=== PATIENT | male | born 1975 | race African-American/Black ===

== ENCOUNTER 2021-03-14 13:38 | Inpatient (IN) | payer OTHER ==
[2021-03-14] MEDS ORDERED: MAG HYDROX/AL HYDROX/SIMETH 30 ML UNIT-DOSE CUP PO PRN (14:40)
[2021-03-14] MEDS ORDERED: MAGNESIUM HYDROX 2400MG/30ML ORAL SUSPENSION 30 ML CUP PO PRN (14:40)
[2021-03-14] MEDS ORDERED: MENTHOL/PHENOL 1 EACH UD MM PRN (14:40)
[2021-03-14] MEDS ORDERED: BISMUTH SUBSALICYLATE 524 MG/30 ML PO PRN (14:40)
[2021-03-14] MEDS ORDERED: ONDANSETRON *ODT* 4 MG TABLET SL PRN (14:40)
[2021-03-14] MEDS ORDERED: MAGNESIUM CITRATE 300 ML BOTTLE PO PRN (14:40)
[2021-03-14] MEDS ORDERED: ACETAMINOPHEN 325 MG TABLET (FP) PO PRN ×2 (14:40)
[2021-03-14] MEDS ORDERED: chlordiazePOXIDE HCL 25 MG CAPSULE PO PRN (14:40)
[2021-03-14] MEDS ORDERED: NICOTINE 10 MG CARTRIDGE (INHALER) IH PRN (14:40)
[2021-03-14 15:03] VITALS: BMI 27.8
[2021-03-14] MEDS ORDERED: DOCUSATE SODIUM 100 MG CAPSULE (FP) PO PRN (18:06)
[2021-03-14] MEDS: chlordiazePOXIDE HCL 25 MG CAPSULE PO SCH ×2 (18:10→22:24)
[2021-03-14] MEDS: hydrOXYzine PAMOATE 25 MG CAPSULE (FP) PO SCH ×2 (18:10→22:36)
[2021-03-14] MEDS: PANTOPRAZOLE 40 MG TABLET PO SCH (20:42)
[2021-03-14] MEDS ORDERED: MELATONIN 5 MG TABLETS PO SCH (22:00)
[2021-03-14] MEDS: THIAMINE HCL 100 MG TABLET (FP) PO SCH (22:24)
[2021-03-14] MEDS: DIVALPROEX NA *ER* EXTEND REL 500 MG TABLET.SA (FP) PO SCH (22:26)
[2021-03-15] MEDS: chlordiazePOXIDE HCL 25 MG CAPSULE PO SCH ×4 (05:58→22:13)
[2021-03-15] MEDS: hydrOXYzine PAMOATE 25 MG CAPSULE (FP) PO SCH ×5 (06:02→22:11)
[2021-03-15] MEDS: PANTOPRAZOLE 40 MG TABLET PO SCH (10:26)
[2021-03-15] MEDS: amLODIPine BESYLATE 5 MG TABLET (FP) PO SCH (10:26)
[2021-03-15] MEDS: DIVALPROEX NA *ER* EXTEND REL 500 MG TABLET.SA (FP) PO SCH ×2 (10:27→22:00)
[2021-03-15] MEDS: PRENATAL VITAMINS W/ FOLIC ACID TABLET (FP) PO SCH (10:27)
[2021-03-15] MEDS: SERTRALINE HCL 50 MG TABLET (FP) PO SCH (11:15)
[2021-03-15 11:32] LABS: CALCIUM 8.8 mg/dL (8.5-10.1)
[2021-03-15 11:33] LABS: ALBUMIN 3.1 g/dl (3.4-5.0); BLOOD UREA NITROGEN 9.6 mg/dL (7-18)
[2021-03-15 11:36] LABS: CREATININE 0.8 mg/dL (0.55-1.3)
[2021-03-15 11:38] LABS: BILIRUBIN,TOTAL 0.2 mg/dL (0.2-1); TOT PROT 6.4 g/dl (6.4-8.2)
[2021-03-15 12:39] LABS: HEMATOCRIT 44.4 % (35.4-49); HEMOGLOBIN 14.6 GM/dL (11.7-16.9); MCH 27.9 pg (25.7-33.7); MCHC 32.8 g/dl (32.0-35.9); MEAN CELL VOLUME 85.1 fl (80-96); MEAN PLT VOLUME 9.1 fl (7.5-11.1); PLATELET COUNT 259 10^3/uL (134-434); RBC 5.22 M/mm3 (4.00-5.60); RDW 15.4 % (11.9-15.9); WHITE BLOOD COUNT 6.9 K/mm3 (4.0-10.0)
[2021-03-15] MEDS: GABAPENTIN 300 MG CAPSULE PO SCH ×2 (14:17→22:13)
[2021-03-15] MEDS: NICOTINE POLACRILEX 2 MG GUM BUC PRN (14:50)
[2021-03-15] MEDS: OLANZapine 10 MG TABLET PO SCH (22:11)
[2021-03-15] MEDS: traZODone HCL 100 MG TABLET (FP) PO SCH (22:12)
[2021-03-15] MEDS: THIAMINE HCL 100 MG TABLET (FP) PO SCH (22:12)
[2021-03-16] MEDS ORDERED: P-EPHED 60MG/TRIPROLIDI 2.5MG TABLET PO PRN (06:12)
[2021-03-16] MEDS: GABAPENTIN 300 MG CAPSULE PO SCH ×3 (06:41→22:13)
[2021-03-16] MEDS: hydrOXYzine PAMOATE 25 MG CAPSULE (FP) PO SCH ×5 (06:41→22:14)
[2021-03-16] MEDS: chlordiazePOXIDE HCL 25 MG CAPSULE PO SCH ×5 (06:43→22:13)
[2021-03-16] MEDS: IBUPROFEN 400 MG TABLET (FP) PO PRN (06:55)
[2021-03-16] MEDS: SERTRALINE HCL 50 MG TABLET (FP) PO SCH (10:14)
[2021-03-16] MEDS: PANTOPRAZOLE 40 MG TABLET PO SCH (10:14)
[2021-03-16] MEDS: amLODIPine BESYLATE 5 MG TABLET (FP) PO SCH (10:14)
[2021-03-16] MEDS: METHOCARBAMOL 500 MG TABLET PO PRN (10:20)
[2021-03-16] MEDS: PRENATAL VITAMINS W/ FOLIC ACID TABLET (FP) PO SCH (10:52)
[2021-03-16] MEDS: NICOTINE POLACRILEX 2 MG GUM BUC PRN ×3 (11:17→19:36)
[2021-03-16] MEDS: DIVALPROEX NA *ER* EXTEND REL 500 MG TABLET.SA (FP) PO SCH ×2 (11:55→22:14)
[2021-03-16] MEDS ORDERED: FLU VACC QS2021-22(6MOS UP)/PF 60 MCG/0.5 ML SYRINGE IM ONE ×2 (14:16→15:00)
[2021-03-16] MEDS: traZODone HCL 100 MG TABLET (FP) PO SCH (22:13)
[2021-03-16] MEDS: OLANZapine 10 MG TABLET PO SCH (22:13)
[2021-03-16] MEDS: THIAMINE HCL 100 MG TABLET (FP) PO SCH (22:13)
[2021-03-17] MEDS ORDERED: chlordiazePOXIDE HCL 10 MG CAPSULE PO PRN
[2021-03-17] MEDS: hydrOXYzine PAMOATE 25 MG CAPSULE (FP) PO SCH ×2 (06:41→10:20)
[2021-03-17] MEDS: GABAPENTIN 300 MG CAPSULE PO SCH (06:41)
[2021-03-17] MEDS: chlordiazePOXIDE HCL 10 MG CAPSULE PO SCH ×2 (06:42→10:22)
[2021-03-17 09:35] VITALS: BP 127/72; PULSE 97; TEMP 97
[2021-03-17] MEDS: NICOTINE POLACRILEX 2 MG GUM BUC PRN (09:38)
[2021-03-17] MEDS: PRENATAL VITAMINS W/ FOLIC ACID TABLET (FP) PO SCH (10:20)
[2021-03-17] MEDS: METHOCARBAMOL 500 MG TABLET PO PRN (10:20)
[2021-03-17] MEDS: amLODIPine BESYLATE 5 MG TABLET (FP) PO SCH (10:20)
[2021-03-17] MEDS: PANTOPRAZOLE 40 MG TABLET PO SCH (10:20)
[2021-03-17] MEDS: DIVALPROEX NA *ER* EXTEND REL 500 MG TABLET.SA (FP) PO SCH (10:21)
[2021-03-17] MEDS: SERTRALINE HCL 50 MG TABLET (FP) PO SCH (10:37)
[2021-03-17] MEDS: IBUPROFEN 400 MG TABLET (FP) PO PRN (10:38)
[2021-03-18] MEDS ORDERED: chlordiazePOXIDE HCL 10 MG CAPSULE PO SCH (05:00)
[2021-03-19] MEDS ORDERED: chlordiazePOXIDE HCL 10 MG CAPSULE PO ONE (05:00)
== END 2021-03-17 12:04 | disposition left against medical advice (07) | DRG 770 ==
LOC: YASAS 13:38 → Y6N 15:28
PROVIDERS: ADMIT Allergy & Immunology; ATTEND Allergy & Immunology
PROC: HZ2ZZZZ Detoxification Services for Substance Abuse Treatment (ICD-10-PCS; principal; 2021-03-14)
DX: F11.23 Opioid dependence with withdrawal (principal); F10.230 Alcohol dependence with withdrawal, uncomplicated; F14.20 Cocaine dependence, uncomplicated; F13.20 Sedative, hypnotic or anxiolytic dependence, uncomplicated; F12.20 Cannabis dependence, uncomplicated; F17.210 Nicotine dependence, cigarettes, uncomplicated; F25.0 Schizoaffective disorder, bipolar type; F25.9 Schizoaffective disorder, unspecified; F19.24 Other psychoactive substance dependence with psychoactive substance-induced mood disorder; F19.282 Other psychoactive substance dependence with psychoactive substance-induced sleep disorder; F43.10 Post-traumatic stress disorder, unspecified; E78.5 Hyperlipidemia, unspecified; E11.9 Type 2 diabetes mellitus without complications; Z62.810 Personal history of physical and sexual abuse in childhood; Z86.69 Personal history of other diseases of the nervous system and sense organs; Z86.11 Personal history of tuberculosis; Z79.84 Long term (current) use of oral hypoglycemic drugs; Z56.0 Unemployment, unspecified
CPT/HCPCS: 36415; 71045-TC-FY; 73130-TC-LT-FY; 80053; 82962; 85027; 86780; 90686; C9803; G0008; U0003; U0005

== ENCOUNTER 2022-02-27 14:26 | Inpatient (IN) | payer OTHER ==
[2022-02-27 15:30] VITALS: BMI 22.8
[2022-02-27] MEDS ORDERED: DICYCLOMINE HCL 10 MG CAPSULE PO PRN (17:21)
[2022-02-27] MEDS ORDERED: MAG HYDROX/AL HYDROX/SIMETH 30 ML UNIT-DOSE CUP PO PRN (17:21)
[2022-02-27] MEDS ORDERED: ONDANSETRON *ODT* 4 MG TABLET SL PRN (17:21)
[2022-02-27] MEDS ORDERED: NALOXONE HCL (KLOXXADO) 8 MG SPRAY NS PRN (17:21)
[2022-02-27] MEDS ORDERED: LOPERAMIDE HCL 2 MG CAPSULE PO PRN (17:21)
[2022-02-27] MEDS ORDERED: POLYETHYLENE GLYCOL (HEALTHYLAX) 3350 17 GM PACKET PO PRN (17:21)
[2022-02-27] MEDS ORDERED: NICOTINE 10 MG CARTRIDGE (INHALER) IH PRN (17:21)
[2022-02-27] MEDS ORDERED: BENZOCAINE/MENTHOL (CHLORASEPTIC ) LOZENGE MM PRN (17:21)
[2022-02-27] MEDS ORDERED: ACETAMINOPHEN 325 MG TABLET (FP) PO PRN (17:21)
[2022-02-27] MEDS ORDERED: BISMUTH SUBSALICYLATE 524 MG/30 ML PO PRN (17:21)
[2022-02-27] MEDS ORDERED: MAGNESIUM HYDROX 2400MG/30ML ORAL SUSPENSION 30 ML CUP PO PRN (17:21)
[2022-02-27] MEDS: PRENATAL VITAMINS W/ FOLIC ACID TABLET (FP) PO SCH (18:40)
[2022-02-27] MEDS ORDERED: MELATONIN 5 MG TABLETS PO SCH (22:00)
[2022-02-27] MEDS: THIAMINE HCL 100 MG TABLET (FP) PO SCH (23:11)
[2022-02-27] MEDS: DIVALPROEX NA *ER* EXTEND REL 500 MG TABLET.SA (FP) PO SCH (23:11)
[2022-02-28 09:27] LABS: HEMATOCRIT 43.7 % (35.4-49); HEMOGLOBIN 13.9 GM/dL (11.7-16.9); MCH 27.4 pg (25.7-33.7); MCHC 31.8 g/dl (32.0-35.9); MEAN PLT VOLUME 8.9 fl (7.5-11.1); PLATELET COUNT 263 10^3/uL (134-434); RBC 5.08 M/mm3 (4.00-5.60); RDW 15.7 % (11.9-15.9)
[2022-02-28] MEDS ORDERED: chlordiazePOXIDE HCL 25 MG CAPSULE PO PRN (09:36)
[2022-02-28 09:37] LABS: CALCIUM 8.7 mg/dL (8.5-10.1)
[2022-02-28 09:38] LABS: BLOOD UREA NITROGEN 11.3 mg/dL (7-18)
[2022-02-28 09:40] LABS: CREATININE 0.7 mg/dL (0.55-1.3)
[2022-02-28 09:42] LABS: BILIRUBIN,TOTAL 0.5 mg/dL (0.2-1); TOT PROT 5.8 g/dl (6.4-8.2)
[2022-02-28] MEDS: DIVALPROEX NA *ER* EXTEND REL 500 MG TABLET.SA (FP) PO SCH ×2 (10:22→22:44)
[2022-02-28] MEDS: chlordiazePOXIDE HCL 25 MG CAPSULE PO SCH ×3 (10:22→22:14)
[2022-02-28] MEDS: PRENATAL VITAMINS W/ FOLIC ACID TABLET (FP) PO SCH (10:22)
[2022-02-28] MEDS: amLODIPine BESYLATE 5 MG TABLET (FP) PO SCH (10:22)
[2022-02-28] MEDS: METHOCARBAMOL 500 MG TABLET PO PRN ×2 (15:42→22:15)
[2022-02-28] MEDS: ACETAMINOPHEN 325 MG TABLET (FP) PO PRN (15:43)
[2022-02-28] MEDS ORDERED: OLANZapine 10 MG TABLET PO SCH (22:00)
[2022-02-28] MEDS: OLANZapine 5 MG TABLET PO SCH (22:14)
[2022-02-28] MEDS: THIAMINE HCL 100 MG TABLET (FP) PO SCH (22:14)
[2022-03-01] MEDS: chlordiazePOXIDE HCL 25 MG CAPSULE PO SCH ×4 (06:20→22:09)
[2022-03-01] MEDS: ACETAMINOPHEN 325 MG TABLET (FP) PO PRN (06:27)
[2022-03-01] MEDS: amLODIPine BESYLATE 5 MG TABLET (FP) PO SCH (10:26)
[2022-03-01] MEDS: PRENATAL VITAMINS W/ FOLIC ACID TABLET (FP) PO SCH (10:26)
[2022-03-01] MEDS: SERTRALINE HCL 50 MG TABLET (FP) PO SCH (10:28)
[2022-03-01] MEDS: DIVALPROEX NA *ER* EXTEND REL 500 MG TABLET.SA (FP) PO SCH ×2 (10:50→22:10)
[2022-03-01] MEDS: OLANZapine 5 MG TABLET PO SCH (22:09)
[2022-03-01] MEDS: THIAMINE HCL 100 MG TABLET (FP) PO SCH (22:10)
[2022-03-01] MEDS: METHOCARBAMOL 500 MG TABLET PO PRN (22:10)
[2022-03-01] MEDS: IBUPROFEN 600 MG TABLET (FP) PO PRN (22:46)
[2022-03-02] MEDS: chlordiazePOXIDE HCL 25 MG CAPSULE PO SCH ×4 (07:22→22:01)
[2022-03-02] MEDS: amLODIPine BESYLATE 5 MG TABLET (FP) PO SCH (11:01)
[2022-03-02] MEDS: DIVALPROEX NA *ER* EXTEND REL 500 MG TABLET.SA (FP) PO SCH ×2 (11:01→21:20)
[2022-03-02] MEDS: SERTRALINE HCL 50 MG TABLET (FP) PO SCH (11:01)
[2022-03-02] MEDS: PRENATAL VITAMINS W/ FOLIC ACID TABLET (FP) PO SCH (11:01)
[2022-03-02] MEDS: METHOCARBAMOL 500 MG TABLET PO PRN ×3 (11:03→22:46)
[2022-03-02] MEDS: IBUPROFEN 600 MG TABLET (FP) PO PRN (11:04)
[2022-03-02] MEDS: IBUPROFEN 400 MG TABLET (FP) PO PRN (16:55)
[2022-03-02] MEDS: THIAMINE HCL 100 MG TABLET (FP) PO SCH (21:20)
[2022-03-02] MEDS: OLANZapine 10 MG TABLET PO SCH (21:20)
[2022-03-02] MEDS: hydrOXYzine PAMOATE 25 MG CAPSULE (FP) PO PRN (22:46)
[2022-03-03] MEDS ORDERED: chlordiazePOXIDE HCL 10 MG CAPSULE PO PRN
[2022-03-03] MEDS: chlordiazePOXIDE HCL 10 MG CAPSULE PO SCH ×4 (05:20→22:04)
[2022-03-03] MEDS: SERTRALINE HCL 50 MG TABLET (FP) PO SCH (10:13)
[2022-03-03] MEDS: PRENATAL VITAMINS W/ FOLIC ACID TABLET (FP) PO SCH (10:13)
[2022-03-03] MEDS: DIVALPROEX NA *ER* EXTEND REL 500 MG TABLET.SA (FP) PO SCH ×2 (10:13→22:02)
[2022-03-03] MEDS: amLODIPine BESYLATE 5 MG TABLET (FP) PO SCH (10:13)
[2022-03-03] MEDS: NICOTINE POLACRILEX 2 MG GUM BUC PRN ×3 (10:14→20:43)
[2022-03-03] MEDS: IBUPROFEN 400 MG TABLET (FP) PO PRN (17:49)
[2022-03-03] MEDS: OLANZapine 10 MG TABLET PO SCH (22:03)
[2022-03-03] MEDS: METHOCARBAMOL 500 MG TABLET PO PRN (22:03)
[2022-03-03] MEDS: THIAMINE HCL 100 MG TABLET (FP) PO SCH (22:03)
[2022-03-03] MEDS: IBUPROFEN 600 MG TABLET (FP) PO PRN (23:14)
[2022-03-03] MEDS: hydrOXYzine PAMOATE 25 MG CAPSULE (FP) PO PRN (23:14)
[2022-03-04] MEDS: chlordiazePOXIDE HCL 10 MG CAPSULE PO SCH ×2 (06:47→17:40)
[2022-03-04] MEDS: NICOTINE POLACRILEX 2 MG GUM BUC PRN ×3 (08:38→17:30)
[2022-03-04] MEDS: amLODIPine BESYLATE 5 MG TABLET (FP) PO SCH (10:51)
[2022-03-04] MEDS: SERTRALINE HCL 50 MG TABLET (FP) PO SCH (10:51)
[2022-03-04] MEDS: DIVALPROEX NA *ER* EXTEND REL 500 MG TABLET.SA (FP) PO SCH ×2 (10:51→22:04)
[2022-03-04] MEDS: PRENATAL VITAMINS W/ FOLIC ACID TABLET (FP) PO SCH (10:51)
[2022-03-04] MEDS: IBUPROFEN 600 MG TABLET (FP) PO PRN (10:54)
[2022-03-04] MEDS: METHOCARBAMOL 500 MG TABLET PO PRN (17:42)
[2022-03-04] MEDS: THIAMINE HCL 100 MG TABLET (FP) PO SCH (22:03)
[2022-03-04] MEDS: OLANZapine 10 MG TABLET PO SCH (22:04)
[2022-03-04] MEDS: IBUPROFEN 400 MG TABLET (FP) PO PRN (22:05)
[2022-03-05] MEDS ORDERED: chlordiazePOXIDE HCL 10 MG CAPSULE PO ONE (05:00)
[2022-03-05] MEDS: DIVALPROEX NA *ER* EXTEND REL 500 MG TABLET.SA (FP) PO SCH (10:12)
[2022-03-05] MEDS: PRENATAL VITAMINS W/ FOLIC ACID TABLET (FP) PO SCH (10:12)
[2022-03-05] MEDS: amLODIPine BESYLATE 5 MG TABLET (FP) PO SCH (10:12)
[2022-03-05] MEDS: SERTRALINE HCL 50 MG TABLET (FP) PO SCH (10:12)
[2022-03-05] MEDS: METHOCARBAMOL 500 MG TABLET PO PRN ×2 (10:14→16:55)
[2022-03-05] MEDS: NICOTINE POLACRILEX 2 MG GUM BUC PRN ×3 (10:15→16:57)
[2022-03-05 12:59] VITALS: RESP 18
[2022-03-05] MEDS: IBUPROFEN 400 MG TABLET (FP) PO PRN (14:13)
[2022-03-05] MEDS: ACETAMINOPHEN 325 MG TABLET (FP) PO PRN (16:56)
[2022-03-05 17:10] VITALS: BP 138/79; PULSE 96; TEMP 98.6
[2022-03-05] MEDS: hydrOXYzine PAMOATE 25 MG CAPSULE (FP) PO PRN (17:55)
== END 2022-03-05 18:33 | disposition other institution (70) | DRG 774 ==
LOC: YASAS 14:26 → UNDOADMIN 18:09 → Y3N 18:09
PROVIDERS: ADMIT Allergy & Immunology; ATTEND Surgery
PROC: HZ2ZZZZ Detoxification Services for Substance Abuse Treatment (ICD-10-PCS; principal; 2022-02-28)
DX: F10.230 Alcohol dependence with withdrawal, uncomplicated (principal); F14.20 Cocaine dependence, uncomplicated; F12.20 Cannabis dependence, uncomplicated; F17.210 Nicotine dependence, cigarettes, uncomplicated; F25.0 Schizoaffective disorder, bipolar type; F31.9 Bipolar disorder, unspecified; G40.909 Epilepsy, unspecified, not intractable, without status epilepticus; I10 Essential (primary) hypertension; E78.00 Pure hypercholesterolemia, unspecified; E11.9 Type 2 diabetes mellitus without complications; Z79.84 Long term (current) use of oral hypoglycemic drugs; Z56.0 Unemployment, unspecified; Z59.00 Homelessness unspecified
CPT/HCPCS: 36415; 80053; 80164; 82962; 85027; 86780; C9803-CS; U0003; U0005

== ENCOUNTER 2022-03-05 18:16 | Inpatient (IN) | payer OTHER ==
[2022-03-05] MEDS ORDERED: OLANZapine 10 MG TABLET PO SCH (22:00)
[2022-03-05] MEDS ORDERED: P-EPHED 60MG/TRIPROLIDI 2.5MG TABLET PO PRN (22:04)
[2022-03-05] MEDS ORDERED: BENZOCAINE/MENTHOL (CHLORASEPTIC ) LOZENGE MM PRN (22:04)
[2022-03-05] MEDS ORDERED: POLYETHYLENE GLYCOL (HEALTHYLAX) 3350 17 GM PACKET PO PRN (22:04)
[2022-03-05] MEDS ORDERED: MAG HYDROX/AL HYDROX/SIMETH 30 ML UNIT-DOSE CUP PO PRN (22:04)
[2022-03-05] MEDS ORDERED: ACETAMINOPHEN 325 MG TABLET (FP) PO PRN (22:04)
[2022-03-05] MEDS ORDERED: MAGNESIUM HYDROX 2400MG/30ML ORAL SUSPENSION 30 ML CUP PO PRN (22:04)
[2022-03-05] MEDS ORDERED: LOPERAMIDE HCL 2 MG CAPSULE PO PRN (22:04)
[2022-03-05] MEDS ORDERED: BACLOFEN 10 MG TABLET (FP) PO SCH (22:15)
[2022-03-05] MEDS ORDERED: DIVALPROEX NA *ER* EXTEND REL 500 MG TABLET.SA (FP) PO SCH (22:15)
[2022-03-05] MEDS: MELATONIN 5 MG TABLETS PO SCH (22:15)
[2022-03-06] MEDS: IBUPROFEN 400 MG TABLET (FP) PO PRN ×2 (02:44→14:09)
[2022-03-06] MEDS: PRENATAL VITAMINS W/ FOLIC ACID TABLET (FP) PO SCH (09:54)
[2022-03-06] MEDS: amLODIPine BESYLATE 5 MG TABLET (FP) PO SCH (09:54)
[2022-03-06] MEDS: NICOTINE 21 MG/24 HOURS TOPICAL PATCH TD SCH (09:55)
[2022-03-06] MEDS: NICOTINE POLACRILEX 2 MG GUM BUC PRN ×2 (10:06→12:49)
[2022-03-06] MEDS: BACLOFEN 10 MG TABLET (FP) PO PRN ×2 (15:44→21:03)
[2022-03-06] MEDS: THIAMINE HCL 100 MG TABLET (FP) PO SCH (21:03)
[2022-03-06] MEDS: hydrOXYzine PAMOATE 25 MG CAPSULE (FP) PO PRN (21:03)
[2022-03-06] MEDS: MELATONIN 5 MG TABLETS PO SCH (21:03)
[2022-03-07] MEDS: BACLOFEN 10 MG TABLET (FP) PO PRN ×2 (06:34→21:34)
[2022-03-07] MEDS: IBUPROFEN 400 MG TABLET (FP) PO PRN ×2 (09:31→21:41)
[2022-03-07] MEDS: PRENATAL VITAMINS W/ FOLIC ACID TABLET (FP) PO SCH (09:32)
[2022-03-07] MEDS: amLODIPine BESYLATE 5 MG TABLET (FP) PO SCH (09:32)
[2022-03-07] MEDS: NICOTINE 21 MG/24 HOURS TOPICAL PATCH TD SCH (09:32)
[2022-03-07] MEDS: NICOTINE POLACRILEX 2 MG GUM BUC PRN (09:33)
[2022-03-07] MEDS: THIAMINE HCL 100 MG TABLET (FP) PO SCH (21:34)
[2022-03-07] MEDS: MELATONIN 5 MG TABLETS PO SCH (21:34)
[2022-03-07] MEDS: hydrOXYzine PAMOATE 25 MG CAPSULE (FP) PO PRN (21:34)
[2022-03-07] MEDS ORDERED: METHOCARBAMOL 500 MG TABLET PO ONE (22:59)
[2022-03-08] MEDS: amLODIPine BESYLATE 5 MG TABLET (FP) PO SCH (09:29)
[2022-03-08] MEDS: NICOTINE 21 MG/24 HOURS TOPICAL PATCH TD SCH (09:29)
[2022-03-08] MEDS: PRENATAL VITAMINS W/ FOLIC ACID TABLET (FP) PO SCH (09:30)
[2022-03-08] MEDS: BACLOFEN 10 MG TABLET (FP) PO PRN ×2 (09:30→22:39)
[2022-03-08] MEDS: DIVALPROEX NA *ER* EXTEND REL 500 MG TABLET.SA (FP) PO SCH ×2 (11:56→21:27)
[2022-03-08] MEDS: NICOTINE 10 MG CARTRIDGE (INHALER) IH PRN (14:14)
[2022-03-08] MEDS: THIAMINE HCL 100 MG TABLET (FP) PO SCH (21:27)
[2022-03-08] MEDS: METHOCARBAMOL 500 MG TABLET PO PRN (21:27)
[2022-03-08] MEDS: MELATONIN 5 MG TABLETS PO SCH (21:27)
[2022-03-08] MEDS: hydrOXYzine PAMOATE 25 MG CAPSULE (FP) PO PRN (21:27)
[2022-03-08] MEDS: OLANZapine 10 MG TABLET PO SCH (21:28)
[2022-03-09] MEDS: BACLOFEN 10 MG TABLET (FP) PO PRN ×2 (06:34→16:44)
[2022-03-09] MEDS: NICOTINE 21 MG/24 HOURS TOPICAL PATCH TD SCH (09:50)
[2022-03-09] MEDS: DIVALPROEX NA *ER* EXTEND REL 500 MG TABLET.SA (FP) PO SCH ×2 (09:50→21:08)
[2022-03-09] MEDS: amLODIPine BESYLATE 5 MG TABLET (FP) PO SCH (09:51)
[2022-03-09] MEDS: PRENATAL VITAMINS W/ FOLIC ACID TABLET (FP) PO SCH (09:51)
[2022-03-09] MEDS: SERTRALINE HCL 50 MG TABLET (FP) PO SCH (09:52)
[2022-03-09] MEDS: NICOTINE 10 MG CARTRIDGE (INHALER) IH PRN (12:24)
[2022-03-09] MEDS: MELATONIN 5 MG TABLETS PO SCH (21:07)
[2022-03-09] MEDS: THIAMINE HCL 100 MG TABLET (FP) PO SCH (21:07)
[2022-03-09] MEDS: OLANZapine 10 MG TABLET PO SCH (21:07)
[2022-03-10] MEDS: BACLOFEN 10 MG TABLET (FP) PO PRN ×2 (06:51→21:03)
[2022-03-10] MEDS: SERTRALINE HCL 50 MG TABLET (FP) PO SCH (10:18)
[2022-03-10] MEDS: amLODIPine BESYLATE 5 MG TABLET (FP) PO SCH (10:19)
[2022-03-10] MEDS: NICOTINE 21 MG/24 HOURS TOPICAL PATCH TD SCH (10:19)
[2022-03-10] MEDS: PRENATAL VITAMINS W/ FOLIC ACID TABLET (FP) PO SCH (10:19)
[2022-03-10] MEDS: DIVALPROEX NA *ER* EXTEND REL 500 MG TABLET.SA (FP) PO SCH ×2 (10:20→21:04)
[2022-03-10] MEDS: guaiFENesin 200 MG/10 ML 10 ML UNIT-DOSE CUPS PO PRN (16:36)
[2022-03-10] MEDS: MELATONIN 5 MG TABLETS PO SCH (21:03)
[2022-03-10] MEDS: OLANZapine 10 MG TABLET PO SCH (21:03)
[2022-03-10] MEDS: THIAMINE HCL 100 MG TABLET (FP) PO SCH (21:03)
[2022-03-11] MEDS: amLODIPine BESYLATE 5 MG TABLET (FP) PO SCH (09:30)
[2022-03-11] MEDS: SERTRALINE HCL 50 MG TABLET (FP) PO SCH (09:30)
[2022-03-11] MEDS: DIVALPROEX NA *ER* EXTEND REL 500 MG TABLET.SA (FP) PO SCH ×2 (09:31→21:16)
[2022-03-11] MEDS: PRENATAL VITAMINS W/ FOLIC ACID TABLET (FP) PO SCH (09:31)
[2022-03-11] MEDS: NICOTINE 21 MG/24 HOURS TOPICAL PATCH TD SCH (09:31)
[2022-03-11] MEDS: BACLOFEN 10 MG TABLET (FP) PO PRN ×2 (09:32→21:15)
[2022-03-11] MEDS: guaiFENesin 200 MG/10 ML 10 ML UNIT-DOSE CUPS PO PRN (12:33)
[2022-03-11] MEDS: MELATONIN 5 MG TABLETS PO SCH (21:14)
[2022-03-11] MEDS: THIAMINE HCL 100 MG TABLET (FP) PO SCH (21:14)
[2022-03-11] MEDS: OLANZapine 10 MG TABLET PO SCH (21:14)
[2022-03-12] MEDS: IBUPROFEN 400 MG TABLET (FP) PO PRN ×2 (00:50→16:48)
[2022-03-12] MEDS: DIVALPROEX NA *ER* EXTEND REL 500 MG TABLET.SA (FP) PO SCH ×2 (10:44→21:47)
[2022-03-12] MEDS: PRENATAL VITAMINS W/ FOLIC ACID TABLET (FP) PO SCH (10:44)
[2022-03-12] MEDS: NICOTINE 21 MG/24 HOURS TOPICAL PATCH TD SCH (10:44)
[2022-03-12] MEDS: SERTRALINE HCL 50 MG TABLET (FP) PO SCH (10:44)
[2022-03-12] MEDS: amLODIPine BESYLATE 5 MG TABLET (FP) PO SCH (10:47)
[2022-03-12] MEDS: NICOTINE 10 MG CARTRIDGE (INHALER) IH PRN (15:09)
[2022-03-12] MEDS: OLANZapine 10 MG TABLET PO SCH (21:46)
[2022-03-12] MEDS: MELATONIN 5 MG TABLETS PO SCH (21:47)
[2022-03-12] MEDS: THIAMINE HCL 100 MG TABLET (FP) PO SCH (21:47)
[2022-03-12] MEDS: BACLOFEN 10 MG TABLET (FP) PO PRN (21:50)
[2022-03-13] MEDS: PRENATAL VITAMINS W/ FOLIC ACID TABLET (FP) PO SCH (09:27)
[2022-03-13] MEDS: amLODIPine BESYLATE 5 MG TABLET (FP) PO SCH (09:27)
[2022-03-13] MEDS: SERTRALINE HCL 50 MG TABLET (FP) PO SCH (09:27)
[2022-03-13] MEDS: DIVALPROEX NA *ER* EXTEND REL 500 MG TABLET.SA (FP) PO SCH ×2 (09:27→21:07)
[2022-03-13] MEDS: NICOTINE 21 MG/24 HOURS TOPICAL PATCH TD SCH (09:27)
[2022-03-13] MEDS: NICOTINE 10 MG CARTRIDGE (INHALER) IH PRN (21:03)
[2022-03-13] MEDS: MELATONIN 5 MG TABLETS PO SCH (21:05)
[2022-03-13] MEDS: THIAMINE HCL 100 MG TABLET (FP) PO SCH (21:05)
[2022-03-13] MEDS: BACLOFEN 10 MG TABLET (FP) PO PRN (21:05)
[2022-03-13] MEDS: OLANZapine 10 MG TABLET PO SCH (21:07)
[2022-03-14] MEDS: DIVALPROEX NA *ER* EXTEND REL 500 MG TABLET.SA (FP) PO SCH ×2 (09:55→21:27)
[2022-03-14] MEDS: NICOTINE 21 MG/24 HOURS TOPICAL PATCH TD SCH (09:55)
[2022-03-14] MEDS: SERTRALINE HCL 50 MG TABLET (FP) PO SCH (09:56)
[2022-03-14] MEDS: PRENATAL VITAMINS W/ FOLIC ACID TABLET (FP) PO SCH (09:56)
[2022-03-14] MEDS: amLODIPine BESYLATE 5 MG TABLET (FP) PO SCH (09:56)
[2022-03-14] MEDS: NICOTINE 10 MG CARTRIDGE (INHALER) IH PRN (12:26)
[2022-03-14] MEDS: MELATONIN 5 MG TABLETS PO SCH (21:26)
[2022-03-14] MEDS: THIAMINE HCL 100 MG TABLET (FP) PO SCH (21:26)
[2022-03-14] MEDS: BACLOFEN 10 MG TABLET (FP) PO PRN (21:27)
[2022-03-14] MEDS: OLANZapine 10 MG TABLET PO SCH (21:27)
[2022-03-15] MEDS: DIVALPROEX NA *ER* EXTEND REL 500 MG TABLET.SA (FP) PO SCH ×2 (09:46→21:05)
[2022-03-15] MEDS: NICOTINE 21 MG/24 HOURS TOPICAL PATCH TD SCH (09:47)
[2022-03-15] MEDS: PRENATAL VITAMINS W/ FOLIC ACID TABLET (FP) PO SCH (09:47)
[2022-03-15] MEDS: amLODIPine BESYLATE 5 MG TABLET (FP) PO SCH (09:47)
[2022-03-15] MEDS: SERTRALINE HCL 50 MG TABLET (FP) PO SCH (09:47)
[2022-03-15] MEDS: BACLOFEN 10 MG TABLET (FP) PO PRN ×2 (09:48→21:03)
[2022-03-15] MEDS: METHOCARBAMOL 500 MG TABLET PO PRN (15:36)
[2022-03-15] MEDS ORDERED: INSULIN (NOVOLOG) ASPART 100 UNITS/ML 10ML VIAL ONE (16:38)
[2022-03-15] MEDS: THIAMINE HCL 100 MG TABLET (FP) PO SCH (21:03)
[2022-03-15] MEDS: OLANZapine 10 MG TABLET PO SCH (21:03)
[2022-03-15] MEDS: MELATONIN 5 MG TABLETS PO SCH (21:03)
[2022-03-16] MEDS: amLODIPine BESYLATE 5 MG TABLET (FP) PO SCH (09:51)
[2022-03-16] MEDS: SERTRALINE HCL 50 MG TABLET (FP) PO SCH (09:52)
[2022-03-16] MEDS: PRENATAL VITAMINS W/ FOLIC ACID TABLET (FP) PO SCH (09:52)
[2022-03-16] MEDS: NICOTINE 21 MG/24 HOURS TOPICAL PATCH TD SCH (09:52)
[2022-03-16] MEDS: DIVALPROEX NA *ER* EXTEND REL 500 MG TABLET.SA (FP) PO SCH ×2 (09:52→21:27)
[2022-03-16] MEDS: NICOTINE 10 MG CARTRIDGE (INHALER) IH PRN (14:11)
[2022-03-16] MEDS ORDERED: INSULIN (NOVOLOG) ASPART 100 UNITS/ML 10ML VIAL ONE (16:42)
[2022-03-16] MEDS: THIAMINE HCL 100 MG TABLET (FP) PO SCH (21:26)
[2022-03-16] MEDS: MELATONIN 5 MG TABLETS PO SCH (21:27)
[2022-03-16] MEDS: BACLOFEN 10 MG TABLET (FP) PO PRN (21:27)
[2022-03-16] MEDS: OLANZapine 10 MG TABLET PO SCH (21:27)
[2022-03-17] MEDS: NICOTINE 21 MG/24 HOURS TOPICAL PATCH TD SCH (09:54)
[2022-03-17] MEDS: DIVALPROEX NA *ER* EXTEND REL 500 MG TABLET.SA (FP) PO SCH ×2 (09:55→21:20)
[2022-03-17] MEDS: PRENATAL VITAMINS W/ FOLIC ACID TABLET (FP) PO SCH (09:55)
[2022-03-17] MEDS: SERTRALINE HCL 50 MG TABLET (FP) PO SCH (09:55)
[2022-03-17] MEDS: BACLOFEN 10 MG TABLET (FP) PO PRN ×2 (09:56→21:20)
[2022-03-17] MEDS: amLODIPine BESYLATE 5 MG TABLET (FP) PO SCH (09:57)
[2022-03-17] MEDS: NICOTINE 10 MG CARTRIDGE (INHALER) IH PRN (21:20)
[2022-03-17] MEDS: THIAMINE HCL 100 MG TABLET (FP) PO SCH (21:20)
[2022-03-17] MEDS: OLANZapine 10 MG TABLET PO SCH (21:20)
[2022-03-17] MEDS: MELATONIN 5 MG TABLETS PO SCH (21:21)
[2022-03-18] MEDS: PRENATAL VITAMINS W/ FOLIC ACID TABLET (FP) PO SCH (10:13)
[2022-03-18] MEDS: DIVALPROEX NA *ER* EXTEND REL 500 MG TABLET.SA (FP) PO SCH ×2 (10:20→21:06)
[2022-03-18] MEDS: amLODIPine BESYLATE 5 MG TABLET (FP) PO SCH (10:20)
[2022-03-18] MEDS: NICOTINE 21 MG/24 HOURS TOPICAL PATCH TD SCH (10:20)
[2022-03-18] MEDS: METHOCARBAMOL 500 MG TABLET PO PRN ×2 (10:20→21:08)
[2022-03-18] MEDS: SERTRALINE HCL 50 MG TABLET (FP) PO SCH (10:20)
[2022-03-18] MEDS: NICOTINE 10 MG CARTRIDGE (INHALER) IH PRN (16:44)
[2022-03-18] MEDS: THIAMINE HCL 100 MG TABLET (FP) PO SCH (21:06)
[2022-03-18] MEDS: MELATONIN 5 MG TABLETS PO SCH (21:06)
[2022-03-18] MEDS: OLANZapine 10 MG TABLET PO SCH (21:06)
[2022-03-19] MEDS: DIVALPROEX NA *ER* EXTEND REL 500 MG TABLET.SA (FP) PO SCH ×2 (09:08→21:13)
[2022-03-19] MEDS: NICOTINE 21 MG/24 HOURS TOPICAL PATCH TD SCH (09:08)
[2022-03-19] MEDS: PRENATAL VITAMINS W/ FOLIC ACID TABLET (FP) PO SCH (09:09)
[2022-03-19] MEDS: SERTRALINE HCL 50 MG TABLET (FP) PO SCH (09:09)
[2022-03-19] MEDS: amLODIPine BESYLATE 5 MG TABLET (FP) PO SCH (09:09)
[2022-03-19] MEDS: BACLOFEN 10 MG TABLET (FP) PO PRN (09:10)
[2022-03-19] MEDS: NICOTINE 10 MG CARTRIDGE (INHALER) IH PRN ×2 (13:39→21:13)
[2022-03-19] MEDS: OLANZapine 10 MG TABLET PO SCH (21:11)
[2022-03-19] MEDS: THIAMINE HCL 100 MG TABLET (FP) PO SCH (21:11)
[2022-03-19] MEDS: MELATONIN 5 MG TABLETS PO SCH (21:11)
[2022-03-19] MEDS: METHOCARBAMOL 500 MG TABLET PO PRN (21:13)
[2022-03-20] MEDS: SERTRALINE HCL 50 MG TABLET (FP) PO SCH (09:56)
[2022-03-20] MEDS: amLODIPine BESYLATE 5 MG TABLET (FP) PO SCH (09:56)
[2022-03-20] MEDS: DIVALPROEX NA *ER* EXTEND REL 500 MG TABLET.SA (FP) PO SCH ×2 (09:56→21:26)
[2022-03-20] MEDS: BACLOFEN 10 MG TABLET (FP) PO PRN ×2 (09:57→21:18)
[2022-03-20] MEDS: NICOTINE 21 MG/24 HOURS TOPICAL PATCH TD SCH (09:57)
[2022-03-20] MEDS: PRENATAL VITAMINS W/ FOLIC ACID TABLET (FP) PO SCH (09:57)
[2022-03-20] MEDS: NICOTINE 10 MG CARTRIDGE (INHALER) IH PRN (11:40)
[2022-03-20] MEDS ORDERED: INSULIN (NOVOLOG) ASPART 100 UNITS/ML 10ML VIAL ONE (16:30)
[2022-03-20] MEDS: OLANZapine 10 MG TABLET PO SCH (21:18)
[2022-03-20] MEDS: MELATONIN 5 MG TABLETS PO SCH (21:18)
[2022-03-20] MEDS: THIAMINE HCL 100 MG TABLET (FP) PO SCH (21:18)
[2022-03-21] MEDS: amLODIPine BESYLATE 5 MG TABLET (FP) PO SCH (09:19)
[2022-03-21] MEDS: DIVALPROEX NA *ER* EXTEND REL 500 MG TABLET.SA (FP) PO SCH ×2 (09:19→21:16)
[2022-03-21] MEDS: NICOTINE 21 MG/24 HOURS TOPICAL PATCH TD SCH (09:19)
[2022-03-21] MEDS: PRENATAL VITAMINS W/ FOLIC ACID TABLET (FP) PO SCH (09:20)
[2022-03-21] MEDS: SERTRALINE HCL 50 MG TABLET (FP) PO SCH (09:20)
[2022-03-21] MEDS: BACLOFEN 10 MG TABLET (FP) PO PRN ×2 (09:21→21:13)
[2022-03-21] MEDS: MELATONIN 5 MG TABLETS PO SCH (21:13)
[2022-03-21] MEDS: THIAMINE HCL 100 MG TABLET (FP) PO SCH (21:13)
[2022-03-21] MEDS: OLANZapine 10 MG TABLET PO SCH (21:13)
[2022-03-21] MEDS: hydrOXYzine PAMOATE 25 MG CAPSULE (FP) PO PRN (21:13)
[2022-03-22] MEDS: SERTRALINE HCL 50 MG TABLET (FP) PO SCH (09:44)
[2022-03-22] MEDS: PRENATAL VITAMINS W/ FOLIC ACID TABLET (FP) PO SCH (09:44)
[2022-03-22] MEDS: NICOTINE 21 MG/24 HOURS TOPICAL PATCH TD SCH (09:44)
[2022-03-22] MEDS: DIVALPROEX NA *ER* EXTEND REL 500 MG TABLET.SA (FP) PO SCH ×2 (09:44→21:11)
[2022-03-22] MEDS: amLODIPine BESYLATE 5 MG TABLET (FP) PO SCH (09:45)
[2022-03-22] MEDS: hydrOXYzine PAMOATE 25 MG CAPSULE (FP) PO PRN (09:47)
[2022-03-22] MEDS: IBUPROFEN 400 MG TABLET (FP) PO PRN (11:02)
[2022-03-22] MEDS: NICOTINE 10 MG CARTRIDGE (INHALER) IH PRN (16:42)
[2022-03-22] MEDS: MELATONIN 5 MG TABLETS PO SCH (21:11)
[2022-03-22] MEDS: OLANZapine 10 MG TABLET PO SCH (21:11)
[2022-03-22] MEDS: THIAMINE HCL 100 MG TABLET (FP) PO SCH (21:11)
[2022-03-22] MEDS: METHOCARBAMOL 500 MG TABLET PO PRN (21:12)
[2022-03-23] MEDS: DIVALPROEX NA *ER* EXTEND REL 500 MG TABLET.SA (FP) PO SCH ×2 (10:08→21:12)
[2022-03-23] MEDS: amLODIPine BESYLATE 5 MG TABLET (FP) PO SCH (10:09)
[2022-03-23] MEDS: PRENATAL VITAMINS W/ FOLIC ACID TABLET (FP) PO SCH (10:09)
[2022-03-23] MEDS: SERTRALINE HCL 50 MG TABLET (FP) PO SCH (10:09)
[2022-03-23] MEDS: NICOTINE 21 MG/24 HOURS TOPICAL PATCH TD SCH (10:09)
[2022-03-23] MEDS: BACLOFEN 10 MG TABLET (FP) PO PRN ×2 (10:11→21:12)
[2022-03-23 10:24] VITALS: RESP 17
[2022-03-23] MEDS: NICOTINE 10 MG CARTRIDGE (INHALER) IH PRN (13:05)
[2022-03-23] MEDS: THIAMINE HCL 100 MG TABLET (FP) PO SCH (21:11)
[2022-03-23] MEDS: MELATONIN 5 MG TABLETS PO SCH (21:12)
[2022-03-23] MEDS: OLANZapine 10 MG TABLET PO SCH (21:13)
[2022-03-24 07:10] VITALS: TEMP 97.1
[2022-03-24 07:11] VITALS: PULSE 75
[2022-03-24] MEDS: SERTRALINE HCL 50 MG TABLET (FP) PO SCH (10:19)
[2022-03-24] MEDS: PRENATAL VITAMINS W/ FOLIC ACID TABLET (FP) PO SCH (10:19)
[2022-03-24] MEDS: amLODIPine BESYLATE 5 MG TABLET (FP) PO SCH (10:19)
[2022-03-24] MEDS: DIVALPROEX NA *ER* EXTEND REL 500 MG TABLET.SA (FP) PO SCH (10:19)
[2022-03-24] MEDS: NICOTINE 21 MG/24 HOURS TOPICAL PATCH TD SCH (10:20)
[2022-03-24 10:23] VITALS: BP 107/71
== END 2022-03-24 13:00 | disposition home or self-care (01) | DRG 772 ==
LOC: YASAS 18:16 → Y3E 18:19
PROVIDERS: ADMIT Allergy & Immunology; ATTEND Allergy & Immunology
PROC: HZ42ZZZ Group Counseling for Substance Abuse Treatment, Cognitive-Behavioral (ICD-10-PCS; principal; 2022-03-05)
DX: F10.20 Alcohol dependence, uncomplicated (principal); F14.20 Cocaine dependence, uncomplicated; F12.20 Cannabis dependence, uncomplicated; F17.210 Nicotine dependence, cigarettes, uncomplicated; F25.0 Schizoaffective disorder, bipolar type; F43.10 Post-traumatic stress disorder, unspecified; I10 Essential (primary) hypertension; E11.9 Type 2 diabetes mellitus without complications; R76.11 Nonspecific reaction to tuberculin skin test without active tuberculosis; Z79.84 Long term (current) use of oral hypoglycemic drugs
CPT/HCPCS: 71046-TC-FY; 82962; J0475

== ENCOUNTER 2023-03-01 16:13 | Inpatient (IN) | payer OTHER ==
[2023-03-01 16:45] VITALS: BMI 19.4
[2023-03-01] MEDS ORDERED: guaiFENesin 600 MG TABLET.ER (FP) PO PRN (19:34)
[2023-03-01] MEDS ORDERED: ONDANSETRON *ODT* 4 MG TABLET SL PRN (19:34)
[2023-03-01] MEDS ORDERED: DICYCLOMINE HCL 10 MG CAPSULE PO PRN (19:34)
[2023-03-01] MEDS ORDERED: NALOXONE HCL 0.4 MG/ML VIAL IM PRN (19:34)
[2023-03-01] MEDS ORDERED: LOPERAMIDE HCL 2 MG CAPSULE PO PRN (19:34)
[2023-03-01] MEDS ORDERED: hydrOXYzine PAMOATE 25 MG CAPSULE (FP) PO PRN (19:34)
[2023-03-01] MEDS ORDERED: ACETAMINOPHEN 325 MG TABLET (FP) PO PRN (19:34)
[2023-03-01] MEDS ORDERED: MAG HYDROX/AL HYDROX/SIMETH 30 ML UNIT-DOSE CUP PO PRN (19:34)
[2023-03-01] MEDS ORDERED: IBUPROFEN 400 MG TABLET (FP) PO PRN (19:34)
[2023-03-01] MEDS ORDERED: BENZONATATE 200 MG CAPSULE PO PRN (19:34)
[2023-03-01] MEDS ORDERED: METHOCARBAMOL 500 MG TABLET PO PRN (19:34)
[2023-03-01] MEDS ORDERED: MAGNESIUM HYDROX 2400MG/30ML ORAL SUSPENSION 30 ML CUP PO PRN (19:34)
[2023-03-01] MEDS ORDERED: BENZOCAINE/MENTHOL (CHLORASEPTIC ) LOZENGE MM PRN (19:34)
[2023-03-01] MEDS ORDERED: POLYETHYLENE GLYCOL (HEALTHYLAX) 3350 17 GM PACKET PO PRN (19:34)
[2023-03-01] MEDS ORDERED: BISMUTH SUBSALICYLATE 524 MG/30 ML PO PRN (19:34)
[2023-03-01] MEDS ORDERED: NALOXONE HCL (KLOXXADO) 8 MG SPRAY NS PRN (19:34)
[2023-03-01] MEDS: IBUPROFEN 600 MG TABLET (FP) PO PRN (21:50)
[2023-03-01] MEDS: THIAMINE HCL 100 MG TABLET (FP) PO SCH (21:50)
[2023-03-01] MEDS: MELATONIN 5 MG TABLETS PO SCH (21:50)
[2023-03-02] MEDS: IBUPROFEN 600 MG TABLET (FP) PO PRN (10:20)
[2023-03-02] MEDS: PRENATAL VITAMINS W/ FOLIC ACID TABLET (FP) PO SCH (10:20)
[2023-03-02 10:21] LABS: HEMATOCRIT 39.9 % (35.4-49); HEMOGLOBIN 12.9 GM/dL (11.7-16.9); MCH 27.6 pg (25.7-33.7); MCHC 32.3 g/dl (32.0-35.9); MEAN CELL VOLUME 85.4 fl (80-96); MEAN PLT VOLUME 8.2 fl (7.5-11.1); PLATELET COUNT 353 10^3/uL (134-434); RBC 4.67 M/mm3 (4.00-5.60); RDW 15.4 % (11.9-15.9); WHITE BLOOD COUNT 5.6 K/mm3 (4.0-10.0)
[2023-03-02 10:28] LABS: CHLORIDE 109 mmol/L (98-107); POTASSIUM 4.3 mmol/L (3.5-5.1); SODIUM 143 mmol/L (136-145)
[2023-03-02 10:32] LABS: CALCIUM 8.2 mg/dL (8.5-10.1)
[2023-03-02 10:34] LABS: ALBUMIN 2.6 g/dl (3.4-5.0); ANION GAP 2 mmol/L (4-13); BLOOD UREA NITROGEN 9.5 mg/dL (7-18); CO2 32 mmol/L (21-32); GLUCOSE,RANDOM 89 mg/dL (74-106)
[2023-03-02 10:36] LABS: CREATININE 0.6 mg/dL (0.55-1.3)
[2023-03-02 10:37] LABS: SGOT/AST 17 U/L (15-37); SGPT/ALT 24 U/L (13-61)
[2023-03-02 10:38] LABS: BILIRUBIN,TOTAL 0.7 mg/dL (0.2-1); TOT PROT 5.3 g/dl (6.4-8.2)
[2023-03-02 10:39] LABS: ALK PHOS 90 U/L (45-117)
[2023-03-02] MEDS: amLODIPine BESYLATE 5 MG TABLET (FP) PO SCH (12:12)
[2023-03-02] MEDS: ENALAPRIL MALEATE 10 MG TABLET PO SCH (12:12)
[2023-03-02] MEDS: NICOTINE POLACRILEX 2 MG GUM BUC PRN (12:37)
[2023-03-02] MEDS ORDERED: P-EPHED 60MG/TRIPROLIDI 2.5MG TABLET PO PRN (14:08)
[2023-03-02 17:03] VITALS: RESP 18
[2023-03-02] MEDS: metFORMIN HCL 500 MG TABLET (FP) PO SCH (17:18)
[2023-03-02] MEDS ORDERED: OLANZapine 10 MG TABLET PO SCH (22:00)
[2023-03-02] MEDS: MELATONIN 5 MG TABLETS PO SCH (22:07)
[2023-03-02] MEDS: THIAMINE HCL 100 MG TABLET (FP) PO SCH (22:08)
[2023-03-02] MEDS: DIVALPROEX SODIUM 500 MG TABLET E.C. PO SCH (22:08)
[2023-03-03 05:56] VITALS: TEMP 97.8
[2023-03-03] MEDS: metFORMIN HCL 500 MG TABLET (FP) PO SCH (06:20)
[2023-03-03 08:51] VITALS: BP 125/73; PULSE 83
[2023-03-03] MEDS: DIVALPROEX SODIUM 500 MG TABLET E.C. PO SCH (10:40)
[2023-03-03] MEDS: ENALAPRIL MALEATE 10 MG TABLET PO SCH (10:40)
[2023-03-03] MEDS: amLODIPine BESYLATE 5 MG TABLET (FP) PO SCH (10:40)
[2023-03-03] MEDS: PRENATAL VITAMINS W/ FOLIC ACID TABLET (FP) PO SCH (10:40)
[2023-03-03] MEDS: NICOTINE POLACRILEX 2 MG GUM BUC PRN (10:48)
[2023-03-03] MEDS: IBUPROFEN 600 MG TABLET (FP) PO PRN (11:53)
== END 2023-03-03 15:14 | disposition home or self-care (01) | DRG 774 ==
LOC: YASAS 16:13 → Y3N 21:03
PROVIDERS: ADMIT Allergy & Immunology; ATTEND Surgery
PROC: HZ2ZZZZ Detoxification Services for Substance Abuse Treatment (ICD-10-PCS; principal; 2023-03-01)
DX: F10.20 Alcohol dependence, uncomplicated (principal); F14.20 Cocaine dependence, uncomplicated; F17.210 Nicotine dependence, cigarettes, uncomplicated; F25.0 Schizoaffective disorder, bipolar type; I10 Essential (primary) hypertension; E78.00 Pure hypercholesterolemia, unspecified; E11.9 Type 2 diabetes mellitus without complications; Z79.84 Long term (current) use of oral hypoglycemic drugs
CPT/HCPCS: 36415; 71046-TC-FY; 80053; 80307; 82962; 85027; 86593; 86780; 87635

== ENCOUNTER 2023-04-06 12:11 | Inpatient (IN) | payer OTHER ==
[2023-04-06 12:54] VITALS: RESP 16; BMI 20.9
[2023-04-06] MEDS ORDERED: IBUPROFEN 400 MG TABLET (FP) PO PRN (15:39)
[2023-04-06] MEDS ORDERED: MAGNESIUM HYDROX 2400MG/30ML ORAL SUSPENSION 30 ML CUP PO PRN (15:39)
[2023-04-06] MEDS ORDERED: METHOCARBAMOL 500 MG TABLET PO PRN (15:39)
[2023-04-06] MEDS ORDERED: ACETAMINOPHEN 325 MG TABLET (FP) PO PRN (15:39)
[2023-04-06] MEDS ORDERED: MAG HYDROX/AL HYDROX/SIMETH 30 ML UNIT-DOSE CUP PO PRN (15:39)
[2023-04-06] MEDS ORDERED: NICOTINE POLACRILEX 2 MG GUM BUC PRN (15:39)
[2023-04-06] MEDS ORDERED: BENZOCAINE/MENTHOL (CHLORASEPTIC ) LOZENGE MM PRN (15:39)
[2023-04-06] MEDS ORDERED: IBUPROFEN 600 MG TABLET (FP) PO PRN (15:39)
[2023-04-06] MEDS ORDERED: LOPERAMIDE HCL 2 MG CAPSULE PO PRN (15:39)
[2023-04-06] MEDS ORDERED: BENZONATATE 200 MG CAPSULE PO PRN (15:39)
[2023-04-06] MEDS ORDERED: ONDANSETRON *ODT* 4 MG TABLET SL PRN (15:39)
[2023-04-06] MEDS ORDERED: POLYETHYLENE GLYCOL (HEALTHYLAX) 3350 17 GM PACKET PO PRN (15:39)
[2023-04-06] MEDS ORDERED: BISMUTH SUBSALICYLATE 524 MG/30 ML PO PRN (15:39)
[2023-04-06] MEDS ORDERED: guaiFENesin 600 MG TABLET.ER (FP) PO PRN (15:39)
[2023-04-06] MEDS ORDERED: DICYCLOMINE HCL 10 MG CAPSULE PO PRN (15:39)
[2023-04-06] MEDS: hydrOXYzine PAMOATE 25 MG CAPSULE (FP) PO PRN (17:20)
[2023-04-06] MEDS ORDERED: MELATONIN 5 MG TABLETS PO SCH (22:00)
[2023-04-06] MEDS ORDERED: THIAMINE HCL 100 MG TABLET (FP) PO SCH (22:00)
[2023-04-07] MEDS ORDERED: PRENATAL VITAMINS W/ FOLIC ACID TABLET (FP) PO SCH (10:00)
[2023-04-07] MEDS ORDERED: DIVALPROEX SODIUM 500 MG TABLET E.C. PO SCH (10:30)
[2023-04-07] MEDS: hydrOXYzine PAMOATE 25 MG CAPSULE (FP) PO PRN (10:39)
[2023-04-07 11:21] LABS: CHLORIDE 110 mmol/L (98-107); HEMATOCRIT 43.3 % (35.4-49); HEMOGLOBIN 13.7 GM/dL (11.7-16.9); MCHC 31.7 g/dl (32.0-35.9); MEAN CELL VOLUME 85.3 fl (80-96); MEAN PLT VOLUME 8.1 fl (7.5-11.1); PLATELET COUNT 370 10^3/uL (134-434); POTASSIUM 4.6 mmol/L (3.5-5.1); RBC 5.07 M/mm3 (4.00-5.60); RDW 15.8 % (11.9-15.9); SODIUM 144 mmol/L (136-145); WHITE BLOOD COUNT 6.8 K/mm3 (4.0-10.0)
[2023-04-07 11:29] LABS: ALBUMIN 2.7 g/dl (3.4-5.0); GLUCOSE,RANDOM 85 mg/dL (74-106); SGPT/ALT 24 U/L (13-61)
[2023-04-07 11:30] LABS: BILIRUBIN,TOTAL 0.1 mg/dL (0.2-1); TOT PROT 5.4 g/dl (6.4-8.2)
[2023-04-07 11:32] LABS: CREATININE 0.6 mg/dL (0.55-1.3); SGOT/AST 9 U/L (15-37)
[2023-04-07 11:33] LABS: CALCIUM 8.8 mg/dL (8.5-10.1)
[2023-04-07 11:34] LABS: ANION GAP 3 mmol/L (4-13); BLOOD UREA NITROGEN 11.9 mg/dL (7-18); CO2 32 mmol/L (21-32)
[2023-04-07 11:42] LABS: ALK PHOS 86 U/L (45-117)
[2023-04-07 13:08] VITALS: BP 129/68; PULSE 67; TEMP 98.2
[2023-04-07] MEDS ORDERED: OLANZapine 10 MG TABLET PO SCH (22:00)
[2023-04-08] MEDS ORDERED: SERTRALINE HCL 50 MG TABLET (FP) PO SCH (10:00)
== END 2023-04-07 15:49 | disposition home or self-care (01) | DRG 774 ==
LOC: YASAS 12:11 → Y6N 16:32
PROVIDERS: ADMIT Allergy & Immunology; ATTEND Surgery
PROC: HZ2ZZZZ Detoxification Services for Substance Abuse Treatment (ICD-10-PCS; principal; 2023-04-06)
DX: F10.20 Alcohol dependence, uncomplicated (principal); F14.20 Cocaine dependence, uncomplicated; F12.20 Cannabis dependence, uncomplicated; F17.210 Nicotine dependence, cigarettes, uncomplicated; F19.24 Other psychoactive substance dependence with psychoactive substance-induced mood disorder; F25.0 Schizoaffective disorder, bipolar type; F31.9 Bipolar disorder, unspecified; E11.9 Type 2 diabetes mellitus without complications; Z79.4 Long term (current) use of insulin; Z59.00 Homelessness unspecified
CPT/HCPCS: 36415; 80053; 80307; 85027; 86593; 86780; 87635; 87811

== ENCOUNTER 2023-05-11 21:18 | Inpatient (IN) | payer OTHER ==
[2023-05-11 22:33] VITALS: BMI 20.5
[2023-05-11] MEDS ORDERED: MAG HYDROX/AL HYDROX/SIMETH 30 ML UNIT-DOSE CUP PO PRN (23:16)
[2023-05-11] MEDS ORDERED: LOPERAMIDE HCL 2 MG CAPSULE PO PRN (23:16)
[2023-05-11] MEDS ORDERED: POLYETHYLENE GLYCOL (HEALTHYLAX) 3350 17 GM PACKET PO PRN (23:16)
[2023-05-11] MEDS ORDERED: BENZOCAINE/MENTHOL (CHLORASEPTIC ) LOZENGE MM PRN (23:16)
[2023-05-11] MEDS ORDERED: NALOXONE HCL 0.4 MG/ML VIAL IM PRN (23:16)
[2023-05-11] MEDS ORDERED: MAGNESIUM HYDROX 2400MG/30ML ORAL SUSPENSION 30 ML CUP PO PRN (23:16)
[2023-05-11] MEDS ORDERED: guaiFENesin 600 MG TABLET.ER (FP) PO PRN (23:16)
[2023-05-11] MEDS ORDERED: hydrOXYzine PAMOATE 25 MG CAPSULE (FP) PO PRN (23:16)
[2023-05-11] MEDS ORDERED: BENZONATATE 200 MG CAPSULE PO PRN (23:16)
[2023-05-11] MEDS ORDERED: NALOXONE HCL (KLOXXADO) 8 MG SPRAY NS PRN (23:16)
[2023-05-12] MEDS: MELATONIN 5 MG TABLETS PO SCH (05:06)
[2023-05-12] MEDS: amLODIPine BESYLATE 5 MG TABLET (FP) PO SCH (10:22)
[2023-05-12] MEDS: ENALAPRIL MALEATE 10 MG TABLET PO SCH (10:22)
[2023-05-12] MEDS: PRENATAL VITAMINS W/ FOLIC ACID TABLET (FP) PO SCH (10:22)
[2023-05-12] MEDS: NICOTINE 21 MG/24 HOURS TOPICAL PATCH TD SCH (10:22)
[2023-05-12] MEDS: metFORMIN HCL 500 MG TABLET (FP) PO SCH (10:22)
[2023-05-12] MEDS: NICOTINE POLACRILEX 2 MG GUM BUC PRN (10:22)
[2023-05-12] MEDS: SERTRALINE HCL 50 MG TABLET (FP) PO SCH (11:02)
[2023-05-12] MEDS: DIVALPROEX SODIUM 500 MG TABLET E.C. PO SCH (11:02)
[2023-05-12 11:47] LABS: CHLORIDE 110 mmol/L (98-107); POTASSIUM 4.3 mmol/L (3.5-5.1); SODIUM 148 mmol/L (136-145)
[2023-05-12 11:49] LABS: CALCIUM 8.8 mg/dL (8.5-10.1)
[2023-05-12 11:50] LABS: ALBUMIN 2.5 g/dl (3.4-5.0); ANION GAP 4 mmol/L (4-13); BLOOD UREA NITROGEN 11.1 mg/dL (7-18); CO2 33 mmol/L (21-32); GLUCOSE,RANDOM 89 mg/dL (74-106)
[2023-05-12 11:53] LABS: CREATININE 0.7 mg/dL (0.55-1.3); SGOT/AST 16 U/L (15-37); SGPT/ALT 29 U/L (13-61)
[2023-05-12 11:54] LABS: BILIRUBIN,TOTAL 0.1 mg/dL (0.2-1); TOT PROT 5.5 g/dl (6.4-8.2)
[2023-05-12 11:55] LABS: ALK PHOS 101 U/L (45-117); HEMATOCRIT 37.2 % (35.4-49); HEMOGLOBIN 12.2 GM/dL (11.7-16.9); MCHC 32.9 g/dl (32.0-35.9); MEAN CELL VOLUME 85.1 fl (80-96); MEAN PLT VOLUME 8.2 fl (7.5-11.1); PLATELET COUNT 354 10^3/uL (134-434); RBC 4.37 M/mm3 (4.00-5.60); WHITE BLOOD COUNT 7.4 K/mm3 (4.0-10.0)
[2023-05-12 12:50] LABS: SYPHILIS W/ RPR CONF REACTIVE (NONREACTIVE)
[2023-05-12] MEDS: IBUPROFEN 600 MG TABLET (FP) PO PRN (19:58)
[2023-05-12] MEDS: THIAMINE HCL 100 MG TABLET (FP) PO SCH (21:40)
[2023-05-12] MEDS: OLANZapine 10 MG TABLET PO SCH (21:41)
[2023-05-12] MEDS: ACETAMINOPHEN 325 MG TABLET (FP) PO PRN (21:41)
[2023-05-14] MEDS: IBUPROFEN 400 MG TABLET (FP) PO PRN (17:23)
[2023-05-15 07:13] VITALS: TEMP 97.8
[2023-05-15 12:50] LABS: PH,URINE 6.5 (5.0-8.0); URINE APPEARANCE CLEAR; URINE BILIRUBIN NEGATIVE (NEGATIVE); URINE COLOR YELLOW; URINE GLUCOSE (UA) NEGATIVE (NEGATIVE); URINE KETONE NEGATIVE (NEGATIVE); URINE LEUK ESTERASE NEGATIVE (NEGATIVE); URINE NITRITE NEGATIVE (NEGATIVE); URINE PROTEIN NEGATIVE (NEGATIVE); URINE UROBILINOGEN 0.2 mg/dL (0.2-1.0)
[2023-05-16 06:54] VITALS: BP 123/75; PULSE 77; RESP 18
[2023-05-16] MEDS: metFORMIN HCL 500 MG TABLET (FP) PO SCH (17:40)
== END 2023-05-16 17:38 | disposition left against medical advice (07) | DRG 770 ==
LOC: YASAS 21:18 → Y3NR 05-12 02:54 → Y5N 05-14 15:22
PROVIDERS: ADMIT Allergy & Immunology; ATTEND Psychiatry & Neurology Pain Medicine
PROC: HZ42ZZZ Group Counseling for Substance Abuse Treatment, Cognitive-Behavioral (ICD-10-PCS; principal; 2023-05-12)
DX: F10.20 Alcohol dependence, uncomplicated (principal); F14.20 Cocaine dependence, uncomplicated; F17.210 Nicotine dependence, cigarettes, uncomplicated; F25.0 Schizoaffective disorder, bipolar type; I10 Essential (primary) hypertension; E78.5 Hyperlipidemia, unspecified; E11.9 Type 2 diabetes mellitus without complications; Z79.84 Long term (current) use of oral hypoglycemic drugs; Z56.0 Unemployment, unspecified; Z59.00 Homelessness unspecified
CPT/HCPCS: 36415; 80053; 80305; 80307; 81003; 82962; 85027; 86593; 86780; 86803; 87635

== ENCOUNTER 2023-07-02 10:47 | Inpatient (IN) | payer OTHER ==
[2023-07-02 11:19] VITALS: BMI 17.9
[2023-07-02] MEDS ORDERED: BENZOCAINE/MENTHOL (CHLORASEPTIC ) LOZENGE MM PRN (12:19)
[2023-07-02] MEDS ORDERED: NALOXONE HCL (KLOXXADO) 8 MG SPRAY NS PRN (12:19)
[2023-07-02] MEDS ORDERED: POLYETHYLENE GLYCOL (HEALTHYLAX) 3350 17 GM PACKET PO PRN (12:19)
[2023-07-02] MEDS ORDERED: MAGNESIUM HYDROX 2400MG/30ML ORAL SUSPENSION 30 ML CUP PO PRN (12:19)
[2023-07-02] MEDS ORDERED: hydrOXYzine PAMOATE 25 MG CAPSULE (FP) PO PRN (12:19)
[2023-07-02] MEDS ORDERED: MAG HYDROX/AL HYDROX/SIMETH 30 ML UNIT-DOSE CUP PO PRN (12:19)
[2023-07-02] MEDS ORDERED: guaiFENesin 600 MG TABLET.ER (FP) PO PRN (12:19)
[2023-07-02] MEDS ORDERED: IBUPROFEN 400 MG TABLET (FP) PO PRN (12:19)
[2023-07-02] MEDS ORDERED: BENZONATATE 200 MG CAPSULE PO PRN (12:19)
[2023-07-02] MEDS ORDERED: LOPERAMIDE HCL 2 MG CAPSULE PO PRN (12:19)
[2023-07-02] MEDS ORDERED: NALOXONE HCL 0.4 MG/ML VIAL IM PRN (12:19)
[2023-07-02 13:24] VITALS: RESP 18
[2023-07-02] MEDS ORDERED: PATIENT'S OWN MEDICATION (NON-FORMULARY) (Hydroxyzine Hcl [Hydroxyzine Hcl] 25 MG Tablet) PO PRN (14:17)
[2023-07-02] MEDS: PRENATAL VITAMINS W/ FOLIC ACID TABLET (FP) PO SCH (14:20)
[2023-07-02] MEDS: NICOTINE 14 MG/24 HOURS TOPICAL PATCH TD SCH (14:20)
[2023-07-02] MEDS: metFORMIN HCL 500 MG TABLET (FP) PO SCH (17:03)
[2023-07-02] MEDS: IBUPROFEN 600 MG TABLET (FP) PO PRN (17:04)
[2023-07-02] MEDS: THIAMINE HCL 100 MG TABLET (FP) PO SCH (21:47)
[2023-07-02] MEDS: MELATONIN 5 MG TABLETS PO SCH (21:47)
[2023-07-02] MEDS: DIVALPROEX SODIUM 500 MG TABLET E.C. PO ONE (21:47)
[2023-07-02] MEDS ORDERED: GABAPENTIN 300 MG CAPSULE PO SCH (22:00)
[2023-07-02] MEDS ORDERED: OLANZAPINE 20 MG PO SCH (22:00)
[2023-07-02] MEDS ORDERED: DIVALPROEX SODIUM 500 MG TABLET E.C. PO SCH (22:00)
[2023-07-03] MEDS: amLODIPine BESYLATE 5 MG TABLET (FP) PO SCH (09:43)
[2023-07-03] MEDS: ENALAPRIL MALEATE 10 MG TABLET PO SCH (09:43)
[2023-07-03] MEDS: ACETAMINOPHEN 325 MG TABLET (FP) PO PRN (09:44)
[2023-07-03] MEDS ORDERED: SERTRALINE HCL 50 MG TABLET (FP) PO SCH (10:00)
[2023-07-03 12:33] LABS: HEMATOCRIT 40.7 % (35.4-49); HEMOGLOBIN 13.1 GM/dL (11.7-16.9); MCH 27.5 pg (25.7-33.7); MCHC 32.3 g/dl (32.0-35.9); MEAN CELL VOLUME 85.2 fl (80-96); PLATELET COUNT 248 10^3/uL (134-434); RBC 4.77 M/mm3 (4.00-5.60); RDW 15.1 % (11.9-15.9); WHITE BLOOD COUNT 6.7 K/mm3 (4.0-10.0)
[2023-07-03 12:40] LABS: POTASSIUM 3.8 mmol/L (3.5-5.1)
[2023-07-03 12:44] LABS: CALCIUM 8.5 mg/dL (8.5-10.1)
[2023-07-03 12:45] LABS: ALBUMIN 3.2 g/dl (3.4-5.0); BLOOD UREA NITROGEN 10.5 mg/dL (7-18)
[2023-07-03 12:46] LABS: CREATININE 0.8 mg/dL (0.55-1.3)
[2023-07-03 12:48] LABS: BILIRUBIN,TOTAL 0.2 mg/dL (0.2-1); TOT PROT 6.1 g/dl (6.4-8.2)
[2023-07-03 13:23] LABS: SYPHILIS W/ RPR CONF REACTIVE (NONREACTIVE)
[2023-07-03 17:04] LABS: PH,URINE 7.5 (5.0-8.0); URINE APPEARANCE CLEAR; URINE BILIRUBIN NEGATIVE (NEGATIVE); URINE COLOR YELLOW; URINE GLUCOSE (UA) NEGATIVE (NEGATIVE); URINE KETONE NEGATIVE (NEGATIVE); URINE LEUK ESTERASE NEGATIVE (NEGATIVE); URINE NITRITE NEGATIVE (NEGATIVE); URINE PROTEIN NEGATIVE (NEGATIVE); URINE UROBILINOGEN 0.2 mg/dL (0.2-1.0)
[2023-07-03] MEDS: OLANZapine 10 MG TABLET PO SCH (21:48)
[2023-07-06 07:24] VITALS: TEMP 97.8
[2023-07-06] MEDS ORDERED: NICOTINE POLACRILEX 2 MG GUM BUC PRN (10:26)
[2023-07-06 11:07] VITALS: BP 132/73; PULSE 90
== END 2023-07-06 12:49 | disposition left against medical advice (07) | DRG 770 ==
LOC: YASAS 10:47 → Y5N 12:54
PROVIDERS: ADMIT Allergy & Immunology; ATTEND Psychiatry & Neurology Pain Medicine
PROC: HZ42ZZZ Group Counseling for Substance Abuse Treatment, Cognitive-Behavioral (ICD-10-PCS; principal; 2023-07-02)
DX: F10.20 Alcohol dependence, uncomplicated (principal); F14.20 Cocaine dependence, uncomplicated; F12.20 Cannabis dependence, uncomplicated; F17.210 Nicotine dependence, cigarettes, uncomplicated; F25.0 Schizoaffective disorder, bipolar type; F19.282 Other psychoactive substance dependence with psychoactive substance-induced sleep disorder; F19.24 Other psychoactive substance dependence with psychoactive substance-induced mood disorder; I10 Essential (primary) hypertension; E78.5 Hyperlipidemia, unspecified; E11.9 Type 2 diabetes mellitus without complications; Z79.84 Long term (current) use of oral hypoglycemic drugs; Z62.810 Personal history of physical and sexual abuse in childhood; Z91.410 Personal history of adult physical and sexual abuse; Z63.0 Problems in relationship with spouse or partner; Z86.69 Personal history of other diseases of the nervous system and sense organs; Z59.00 Homelessness unspecified
CPT/HCPCS: 36415; 80053; 80164; 80307; 81003; 82962; 85027; 86593; 86780; 86803; 87811; 93005; 93010

== ENCOUNTER 2024-03-17 16:16 | Inpatient (IN) | payer OTHER ==
[2024-03-17] MEDS ORDERED: MAG HYDROX/AL HYDROX/SIMETH 30 ML UNIT-DOSE CUP PO PRN (18:18)
[2024-03-17] MEDS ORDERED: POLYETHYLENE GLYCOL (HEALTHYLAX) 3350 17 GM PACKET PO PRN (18:18)
[2024-03-17] MEDS ORDERED: chlordiazePOXIDE HCL 25 MG CAPSULE PO PRN (18:18)
[2024-03-17] MEDS ORDERED: DICYCLOMINE HCL 10 MG CAPSULE PO PRN (18:18)
[2024-03-17] MEDS ORDERED: hydrOXYzine PAMOATE 25 MG CAPSULE (FP) PO PRN (18:18)
[2024-03-17] MEDS ORDERED: ONDANSETRON *ODT* 4 MG TABLET SL PRN (18:18)
[2024-03-17] MEDS ORDERED: LOPERAMIDE HCL 2 MG CAPSULE PO PRN (18:18)
[2024-03-17] MEDS ORDERED: NALOXONE (NARCAN) HCL 4 MG/0.1 ML SPRAY NS PRN (18:18)
[2024-03-17] MEDS ORDERED: BENZONATATE 200 MG CAPSULE PO PRN (18:18)
[2024-03-17] MEDS ORDERED: IBUPROFEN 400 MG TABLET (FP) PO PRN (18:18)
[2024-03-17] MEDS ORDERED: MAGNESIUM HYDROX 2400MG/30ML ORAL SUSPENSION 30 ML CUP PO PRN (18:18)
[2024-03-17] MEDS ORDERED: BISMUTH SUBSALICYLATE 524 MG/30 ML PO PRN (18:18)
[2024-03-17] MEDS: METHOCARBAMOL 500 MG TABLET PO PRN (20:46)
[2024-03-17] MEDS: guaiFENesin 600 MG TABLET.ER (FP) PO PRN (20:46)
[2024-03-17] MEDS: BENZOCAINE/MENTHOL (CHLORASEPTIC ) LOZENGE MM PRN (20:47)
[2024-03-17] MEDS: DIVALPROEX SODIUM 500 MG TABLET E.C. PO SCH (22:13)
[2024-03-17] MEDS: MELATONIN 5 MG TABLETS PO SCH (22:13)
[2024-03-17] MEDS: chlordiazePOXIDE HCL 25 MG CAPSULE PO SCH (22:13)
[2024-03-17] MEDS: THIAMINE 100 MG TABLET PO SCH (22:13)
[2024-03-18] MEDS: INSULIN ASPART SLIDING SCALE (NOVOLOG) 1 VIAL SQ SCH (08:09)
[2024-03-18] MEDS: metFORMIN HCL 500 MG TABLET (FP) PO SCH (08:09)
[2024-03-18] MEDS: amLODIPine BESYLATE 5 MG TABLET (FP) PO SCH (10:41)
[2024-03-18] MEDS: PRENATAL VITAMINS W/ FOLIC ACID TABLET (FP) PO SCH (10:41)
[2024-03-18] MEDS: ENALAPRIL MALEATE 10 MG TABLET PO SCH (10:41)
[2024-03-18] MEDS: IBUPROFEN 600 MG TABLET (FP) PO PRN (11:03)
[2024-03-18] MEDS: ACETAMINOPHEN 325 MG TABLET (FP) PO PRN (18:10)
[2024-03-18] MEDS ORDERED: NICOTINE POLACRILEX 2 MG GUM BUC PRN (19:00)
[2024-03-18] MEDS: P-EPHED 60MG/TRIPROLIDI 2.5MG TABLET PO PRN (19:23)
[2024-03-18] MEDS: OLANZapine 7.5 MG TABLET PO SCH (22:26)
[2024-03-19] MEDS: chlordiazePOXIDE HCL 25 MG CAPSULE PO SCH (06:31)
[2024-03-20] MEDS ORDERED: chlordiazePOXIDE HCL 10 MG CAPSULE PO PRN
[2024-03-20] MEDS: chlordiazePOXIDE HCL 10 MG CAPSULE PO SCH (06:00)
[2024-03-21] MEDS: chlordiazePOXIDE HCL 10 MG CAPSULE PO SCH (06:00)
[2024-03-21 13:46] LABS: BASO % 1.5 % (0-2.0); EOS % 2.3 % (0-4.5); HEMOGLOBIN 8.8 GM/dL (11.7-16.9); LYMPH % 40.7 % (8-40); MCH 20.9 pg (25.7-33.7); MCHC 29.5 g/dl (32.0-35.9); MEAN CELL VOLUME 70.9 fl (80-96); MEAN PLT VOLUME 7.8 fl (7.5-11.1); MONO % 10.6 % (3.8-10.2); NEUT % 44.9 % (42.8-82.8); PLATELET COUNT 471 10^3/uL (134-434); RBC 4.23 M/mm3 (4.00-5.60); RDW 19.9 % (11.9-15.9)
[2024-03-21 14:03] LABS: ALBUMIN 2.5 g/dl (3.4-5.0); BLOOD UREA NITROGEN 6.4 mg/dL (7-18); CALCIUM 8.6 mg/dL (8.5-10.1)
[2024-03-21 14:06] LABS: BILIRUBIN,TOTAL 0.1 mg/dL (0.2-1); TOT PROT 5.5 g/dl (6.4-8.2)
[2024-03-21 14:07] LABS: CREATININE 0.7 mg/dL (0.55-1.3)
[2024-03-21 14:12] LABS: ANISOCYTOSIS 2+; MACROCYTOSIS 1+; OVALOCYTE 1+; TARGET CELLS 1+
[2024-03-22 05:52] VITALS: RESP 16
[2024-03-22] MEDS: chlordiazePOXIDE HCL 10 MG CAPSULE PO ONE (05:55)
[2024-03-22] MEDS: NALOXONE (NYS OPIOID OVERDOSE PROGRAM) 4 MG/0.1 ML SPRAY NS SCH (08:18)
[2024-03-22 09:04] VITALS: BP 136/69; PULSE 70; TEMP 98.6
== END 2024-03-22 10:50 | disposition other institution (70) | DRG 775 ==
LOC: YASAS 16:16 → Y3N 19:12
PROVIDERS: ADMIT Allergy & Immunology; ATTEND Surgery
PROC: HZ2ZZZZ Detoxification Services for Substance Abuse Treatment (ICD-10-PCS; principal; 2024-03-17)
DX: F10.230 Alcohol dependence with withdrawal, uncomplicated (principal); F19.24 Other psychoactive substance dependence with psychoactive substance-induced mood disorder; F25.0 Schizoaffective disorder, bipolar type; F41.9 Anxiety disorder, unspecified; E78.5 Hyperlipidemia, unspecified; F43.10 Post-traumatic stress disorder, unspecified; G40.909 Epilepsy, unspecified, not intractable, without status epilepticus; E11.9 Type 2 diabetes mellitus without complications; Z79.84 Long term (current) use of oral hypoglycemic drugs; Z59.00 Homelessness unspecified
CPT/HCPCS: 0241U-QW; 36415; 71046-TC-FY; 80053; 80164; 82962; 85025; 93005; 93010

== ENCOUNTER 2024-04-07 13:32 | Inpatient (IN) | payer OTHER ==
[2024-04-07 13:50] VITALS: BMI 20.9
[2024-04-07] MEDS ORDERED: BENZONATATE 200 MG CAPSULE PO PRN (14:13)
[2024-04-07] MEDS ORDERED: DICYCLOMINE HCL 10 MG CAPSULE PO PRN (14:13)
[2024-04-07] MEDS ORDERED: ACETAMINOPHEN 325 MG TABLET (FP) PO PRN (14:13)
[2024-04-07] MEDS ORDERED: LOPERAMIDE HCL 2 MG CAPSULE PO PRN (14:13)
[2024-04-07] MEDS ORDERED: IBUPROFEN 400 MG TABLET (FP) PO PRN (14:13)
[2024-04-07] MEDS ORDERED: BENZOCAINE/MENTHOL (CHLORASEPTIC ) LOZENGE MM PRN (14:13)
[2024-04-07] MEDS ORDERED: hydrOXYzine PAMOATE 25 MG CAPSULE (FP) PO PRN (14:13)
[2024-04-07] MEDS ORDERED: MAG HYDROX/AL HYDROX/SIMETH 30 ML UNIT-DOSE CUP PO PRN (14:13)
[2024-04-07] MEDS ORDERED: NALOXONE (NARCAN) HCL 4 MG/0.1 ML SPRAY NS PRN (14:13)
[2024-04-07] MEDS ORDERED: diazePAM 5 MG TABLET PO PRN (14:13)
[2024-04-07] MEDS ORDERED: BISMUTH SUBSALICYLATE 524 MG/30 ML PO PRN (14:13)
[2024-04-07] MEDS ORDERED: METHOCARBAMOL 500 MG TABLET PO PRN (14:13)
[2024-04-07] MEDS ORDERED: MAGNESIUM HYDROX 2400MG/30ML ORAL SUSPENSION 30 ML CUP PO PRN (14:13)
[2024-04-07] MEDS ORDERED: POLYETHYLENE GLYCOL (HEALTHYLAX) 3350 17 GM PACKET PO PRN (14:13)
[2024-04-07] MEDS ORDERED: ONDANSETRON *ODT* 4 MG TABLET SL PRN (14:13)
[2024-04-07] MEDS: guaiFENesin 600 MG TABLET.ER (FP) PO PRN (16:04)
[2024-04-07] MEDS: metFORMIN HCL 500 MG TABLET (FP) PO SCH (16:04)
[2024-04-07] MEDS: NICOTINE POLACRILEX 4 MG GUM BUC PRN (16:04)
[2024-04-07] MEDS: BACLOFEN 10 MG TABLET (FP) PO SCH (22:25)
[2024-04-07] MEDS: diazePAM 5 MG TABLET PO SCH (22:25)
[2024-04-07] MEDS: THIAMINE 100 MG TABLET PO SCH (22:25)
[2024-04-07] MEDS: MELATONIN 5 MG TABLETS PO SCH (22:25)
[2024-04-07] MEDS: DIVALPROEX SODIUM 500 MG TABLET E.C. PO SCH (22:25)
[2024-04-07] MEDS: guaiFENesin 200 MG/10 ML 10 ML UNIT-DOSE CUPS PO PRN (23:17)
[2024-04-08] MEDS: PRENATAL VITAMINS W/ FOLIC ACID TABLET (FP) PO SCH (10:03)
[2024-04-08] MEDS: amLODIPine BESYLATE 5 MG TABLET (FP) PO SCH (10:03)
[2024-04-08] MEDS: IBUPROFEN 600 MG TABLET (FP) PO PRN (10:06)
[2024-04-08 12:12] LABS: HEMATOCRIT 32.6 % (35.4-49); HEMOGLOBIN 9.3 GM/dL (11.7-16.9); MCH 20.1 pg (25.7-33.7); MCHC 28.7 g/dl (32.0-35.9); MEAN CELL VOLUME 70.2 fl (80-96); MEAN PLT VOLUME 8.4 fl (7.5-11.1); PLATELET COUNT 467 10^3/uL (134-434); RBC 4.64 M/mm3 (4.00-5.60); RDW 22.2 % (11.9-15.9); WHITE BLOOD COUNT 6.8 K/mm3 (4.0-10.0)
[2024-04-08 12:26] LABS: CHLORIDE 108 mmol/L (98-107); POTASSIUM 4.5 mmol/L (3.5-5.1); SODIUM 142 mmol/L (136-145)
[2024-04-08 12:29] LABS: ALBUMIN 2.7 g/dl (3.4-5.0)
[2024-04-08 12:30] LABS: ANION GAP 3 mmol/L (4-13); BLOOD UREA NITROGEN 8.7 mg/dL (7-18); CALCIUM 8.9 mg/dL (8.5-10.1); CO2 31 mmol/L (21-32); GLUCOSE,RANDOM 86 mg/dL (74-106)
[2024-04-08 12:32] LABS: SGPT/ALT 44 U/L (13-61)
[2024-04-08 12:34] LABS: BILIRUBIN,TOTAL 0.2 mg/dL (0.2-1); CREATININE 0.7 mg/dL (0.55-1.3); SGOT/AST 17 U/L (15-37)
[2024-04-08 12:35] LABS: ALK PHOS 103 U/L (45-117)
[2024-04-08 13:18] VITALS: PULSE 68
[2024-04-08] MEDS: DIVALPROEX SODIUM 500 MG TABLET E.C. PO SCH (14:07)
[2024-04-08 18:01] VITALS: BP 145/86; RESP 17; TEMP 97.6
[2024-04-08] MEDS ORDERED: OLANZapine 10 MG TABLET PO SCH (22:00)
[2024-04-09] MEDS ORDERED: diazePAM 5 MG TABLET PO SCH (06:00)
[2024-04-10] MEDS ORDERED: diazePAM 5 MG TABLET PO SCH (06:00)
[2024-04-11] MEDS ORDERED: diazePAM 5 MG TABLET PO ONE (06:00)
== END 2024-04-08 17:30 | disposition left against medical advice (07) | DRG 770 ==
LOC: YASAS 13:32 → Y6N 15:10
PROVIDERS: ADMIT Allergy & Immunology; ATTEND Allergy & Immunology
PROC: HZ2ZZZZ Detoxification Services for Substance Abuse Treatment (ICD-10-PCS; principal; 2024-04-07)
DX: F10.230 Alcohol dependence with withdrawal, uncomplicated (principal); F14.20 Cocaine dependence, uncomplicated; F12.20 Cannabis dependence, uncomplicated; F17.210 Nicotine dependence, cigarettes, uncomplicated; F25.0 Schizoaffective disorder, bipolar type; F19.282 Other psychoactive substance dependence with psychoactive substance-induced sleep disorder; I10 Essential (primary) hypertension; E78.5 Hyperlipidemia, unspecified; E11.9 Type 2 diabetes mellitus without complications; Z79.84 Long term (current) use of oral hypoglycemic drugs; Z62.810 Personal history of physical and sexual abuse in childhood; Z91.410 Personal history of adult physical and sexual abuse; Z86.11 Personal history of tuberculosis; Z63.8 Other specified problems related to primary support group; Z63.0 Problems in relationship with spouse or partner; Z59.00 Homelessness unspecified
CPT/HCPCS: 36415; 80053; 80177; 80305; 80307; 82962; 83036; 85027; 86593; 86780; 93005; 93010; J0475

== ENCOUNTER 2024-06-06 08:33 | Inpatient (IN) | payer OTHER ==
[2024-06-06 09:07] VITALS: BMI 20.3
[2024-06-06] MEDS ORDERED: MAG HYDROX/AL HYDROX/SIMETH 30 ML UNIT-DOSE CUP PO PRN (09:29)
[2024-06-06] MEDS ORDERED: MAGNESIUM HYDROX 2400MG/30ML ORAL SUSPENSION 30 ML CUP PO PRN (09:29)
[2024-06-06] MEDS ORDERED: POLYETHYLENE GLYCOL (HEALTHYLAX) 3350 17 GM PACKET PO PRN (09:29)
[2024-06-06] MEDS ORDERED: hydrOXYzine PAMOATE 25 MG CAPSULE (FP) PO PRN (09:29)
[2024-06-06] MEDS ORDERED: BENZOCAINE/MENTHOL (CHLORASEPTIC ) LOZENGE MM PRN (09:29)
[2024-06-06] MEDS ORDERED: NALOXONE (NARCAN) HCL 4 MG/0.1 ML SPRAY NS PRN (09:29)
[2024-06-06] MEDS ORDERED: LOPERAMIDE HCL 2 MG CAPSULE PO PRN (09:29)
[2024-06-06] MEDS ORDERED: BISMUTH SUBSALICYLATE 524 MG/30 ML PO PRN (09:29)
[2024-06-06] MEDS ORDERED: DICYCLOMINE HCL 10 MG CAPSULE PO PRN (09:29)
[2024-06-06] MEDS ORDERED: NICOTINE POLACRILEX 4 MG GUM BUC PRN (09:29)
[2024-06-06] MEDS ORDERED: guaiFENesin 600 MG TABLET.ER (FP) PO PRN (09:29)
[2024-06-06] MEDS ORDERED: ACETAMINOPHEN 325 MG TABLET (FP) PO PRN (09:29)
[2024-06-06] MEDS ORDERED: ONDANSETRON *ODT* 4 MG TABLET SL PRN (09:29)
[2024-06-06] MEDS ORDERED: BENZONATATE 200 MG CAPSULE PO PRN (09:29)
[2024-06-06] MEDS: ENALAPRIL MALEATE 10 MG TABLET PO SCH (11:34)
[2024-06-06] MEDS: DIVALPROEX SODIUM 500 MG TABLET E.C. PO SCH (11:34)
[2024-06-06] MEDS: metFORMIN HCL 500 MG TABLET (FP) PO SCH (11:34)
[2024-06-06] MEDS: PRENATAL VITAMINS W/ FOLIC ACID TABLET (FP) PO SCH (11:34)
[2024-06-06] MEDS: amLODIPine BESYLATE 5 MG TABLET (FP) PO SCH (11:34)
[2024-06-06] MEDS: IBUPROFEN 600 MG TABLET (FP) PO PRN (17:22)
[2024-06-06] MEDS: THIAMINE 100 MG TABLET PO SCH (23:09)
[2024-06-06] MEDS: MELATONIN 5 MG TABLETS PO SCH (23:09)
[2024-06-07] MEDS: IBUPROFEN 400 MG TABLET (FP) PO PRN (05:57)
[2024-06-07 09:39] LABS: CHLORIDE 109 mmol/L (98-107); HEMATOCRIT 34.2 % (35.4-49); HEMOGLOBIN 10.4 GM/dL (11.7-16.9); MCH 21.2 pg (25.7-33.7); MCHC 30.5 g/dl (32.0-35.9); MEAN CELL VOLUME 69.5 fl (80-96); MEAN PLT VOLUME 8.5 fl (7.5-11.1); PLATELET COUNT 347 10^3/uL (134-434); POTASSIUM 4.6 mmol/L (3.5-5.1); RBC 4.92 M/mm3 (4.00-5.60); RDW 22.7 % (11.9-15.9); SODIUM 142 mmol/L (136-145); WHITE BLOOD COUNT 4.7 K/mm3 (4.0-10.0)
[2024-06-07 10:00] LABS: CALCIUM 8.6 mg/dL (8.5-10.1)
[2024-06-07 10:01] LABS: ALBUMIN 2.8 g/dl (3.4-5.0); ANION GAP 4 mmol/L (4-13); BLOOD UREA NITROGEN 7.9 mg/dL (7-18); CO2 29 mmol/L (21-32); GLUCOSE,RANDOM 89 mg/dL (74-106)
[2024-06-07 10:04] LABS: CREATININE 0.5 mg/dL (0.55-1.3); SGOT/AST 20 U/L (15-37)
[2024-06-07 10:05] LABS: SGPT/ALT 31 U/L (13-61)
[2024-06-07 10:06] LABS: BILIRUBIN,TOTAL 0.2 mg/dL (0.2-1); TOT PROT 5.6 g/dl (6.4-8.2)
[2024-06-07 10:07] LABS: ALK PHOS 90 U/L (45-117)
[2024-06-07] MEDS: OLANZapine 10 MG TABLET PO SCH (21:59)
[2024-06-07] MEDS: METHOCARBAMOL 500 MG TABLET PO PRN (22:00)
[2024-06-08 03:42] VITALS: RESP 18
[2024-06-08 12:49] VITALS: BP 132/75; PULSE 87; TEMP 97.9
[2024-06-08] MEDS: NALTREXONE HCL 50 MG TABLET PO ONE (15:08)
[2024-06-09] MEDS ORDERED: NALTREXONE HCL 50 MG TABLET PO SCH (10:00)
== END 2024-06-08 15:23 | disposition home or self-care (01) | DRG 774 ==
LOC: YASAS 08:33 → Y6N 10:39
PROVIDERS: ADMIT Allergy & Immunology; ATTEND Allergy & Immunology
PROC: HZ2ZZZZ Detoxification Services for Substance Abuse Treatment (ICD-10-PCS; principal; 2024-06-06)
DX: F10.20 Alcohol dependence, uncomplicated (principal); F14.20 Cocaine dependence, uncomplicated; F12.20 Cannabis dependence, uncomplicated; F17.210 Nicotine dependence, cigarettes, uncomplicated; F25.9 Schizoaffective disorder, unspecified; F19.282 Other psychoactive substance dependence with psychoactive substance-induced sleep disorder; F19.24 Other psychoactive substance dependence with psychoactive substance-induced mood disorder; E78.5 Hyperlipidemia, unspecified; I10 Essential (primary) hypertension; Z20.2 Contact with and (suspected) exposure to infections with a predominantly sexual mode of transmission; Z62.810 Personal history of physical and sexual abuse in childhood; Z86.11 Personal history of tuberculosis; Z59.00 Homelessness unspecified
CPT/HCPCS: 36415; 80053; 80305; 80307; 82962; 85027; 86593; 86780; 93005; 93010

== ENCOUNTER 2024-07-02 10:38 | Inpatient (IN) | payer OTHER ==
[2024-07-02] MEDS ORDERED: DICYCLOMINE HCL 10 MG CAPSULE PO PRN (11:29)
[2024-07-02] MEDS ORDERED: IBUPROFEN 400 MG TABLET (FP) PO PRN (11:29)
[2024-07-02] MEDS ORDERED: POLYETHYLENE GLYCOL (HEALTHYLAX) 3350 17 GM PACKET PO PRN (11:29)
[2024-07-02] MEDS ORDERED: BENZOCAINE/MENTHOL (CHLORASEPTIC ) LOZENGE MM PRN (11:29)
[2024-07-02] MEDS ORDERED: ONDANSETRON *ODT* 4 MG TABLET SL PRN (11:29)
[2024-07-02] MEDS ORDERED: BISMUTH SUBSALICYLATE 524 MG/30 ML PO PRN (11:29)
[2024-07-02] MEDS ORDERED: NALOXONE (NARCAN) HCL 4 MG/0.1 ML SPRAY NS PRN (11:29)
[2024-07-02] MEDS ORDERED: ACETAMINOPHEN 325 MG TABLET (FP) PO PRN (11:29)
[2024-07-02] MEDS ORDERED: MAGNESIUM HYDROX 2400MG/30ML ORAL SUSPENSION 30 ML CUP PO PRN (11:29)
[2024-07-02] MEDS ORDERED: BENZONATATE 200 MG CAPSULE PO PRN (11:29)
[2024-07-02] MEDS ORDERED: LOPERAMIDE HCL 2 MG CAPSULE PO PRN (11:29)
[2024-07-02] MEDS ORDERED: MAG HYDROX/AL HYDROX/SIMETH 30 ML UNIT-DOSE CUP PO PRN (11:29)
[2024-07-02] MEDS ORDERED: LORazepam 1 MG TABLET PO PRN (11:29)
[2024-07-02] MEDS ORDERED: guaiFENesin 600 MG TABLET.ER (FP) PO PRN (11:29)
[2024-07-02] MEDS: LORazepam 1 MG TABLET PO SCH (17:17)
[2024-07-02] MEDS: metFORMIN HCL 500 MG TABLET (FP) PO SCH (17:17)
[2024-07-02] MEDS: IBUPROFEN 600 MG TABLET (FP) PO PRN (17:19)
[2024-07-02] MEDS: THIAMINE 100 MG TABLET PO SCH (22:20)
[2024-07-02] MEDS: DIVALPROEX SODIUM 500 MG TABLET E.C. PO SCH (22:20)
[2024-07-02] MEDS: OLANZapine 10 MG TABLET PO ONE (22:20)
[2024-07-02] MEDS: MELATONIN 5 MG TABLETS PO SCH (22:20)
[2024-07-03] MEDS: PRENATAL VITAMINS W/ FOLIC ACID TABLET (FP) PO SCH (10:51)
[2024-07-03] MEDS: NALTREXONE HCL 50 MG TABLET PO SCH (10:54)
[2024-07-03] MEDS: NICOTINE 7 MG/24 HOURS TOPICAL PATCH TD SCH (10:54)
[2024-07-03 11:18] LABS: HEMATOCRIT 41.9 % (40.1-51.0); HEMOGLOBIN 11.6 g/dL (13.7-17.5); MCHC 27.7 g/dl (32.3-36.5); MEAN CELL VOLUME 76.2 fl (79.0-92.2); MEAN PLT VOLUME 10.7 fl (9.4-12.4); PLATELET COUNT 439 x10^3/uL (163-337); RDW 21.2 % (12.1-15.9)
[2024-07-03 11:33] LABS: POTASSIUM 3.7 mmol/L (3.5-5.1)
[2024-07-03 11:44] LABS: CALCIUM 8.7 mg/dL (8.5-10.1)
[2024-07-03 11:45] LABS: ALBUMIN 3.1 g/dl (3.4-5.0)
[2024-07-03 11:48] LABS: BILIRUBIN,TOTAL 0.1 mg/dL (0.2-1); CREATININE 0.7 mg/dL (0.55-1.3); TOT PROT 7.1 g/dl (6.4-8.2)
[2024-07-03 11:51] LABS: BLOOD UREA NITROGEN 10.3 mg/dL (7-18)
[2024-07-03] MEDS: NICOTINE POLACRILEX 2 MG GUM BUC PRN (16:36)
[2024-07-03] MEDS: hydrOXYzine PAMOATE 25 MG CAPSULE (FP) PO PRN (22:03)
[2024-07-03] MEDS: METHOCARBAMOL 500 MG TABLET PO PRN (22:03)
[2024-07-04] MEDS: LORazepam 1 MG TABLET PO SCH (05:28)
[2024-07-04 06:06] VITALS: RESP 16
[2024-07-04 09:08] VITALS: BP 136/60; PULSE 72; TEMP 97.6
[2024-07-05] MEDS ORDERED: LORazepam 0.5 MG TABLET PO PRN
[2024-07-05] MEDS ORDERED: LORazepam 0.5 MG TABLET PO SCH (05:00)
[2024-07-06] MEDS ORDERED: LORazepam 0.5 MG TABLET PO ONE (05:00)
== END 2024-07-04 11:58 | disposition left against medical advice (07) | DRG 770 ==
LOC: YASAS 10:38 → Y3N 12:34
PROVIDERS: ADMIT Allergy & Immunology; ATTEND Allergy & Immunology
PROC: HZ2ZZZZ Detoxification Services for Substance Abuse Treatment (ICD-10-PCS; principal; 2024-07-02)
DX: F10.230 Alcohol dependence with withdrawal, uncomplicated (principal); F14.20 Cocaine dependence, uncomplicated; F13.20 Sedative, hypnotic or anxiolytic dependence, uncomplicated; F17.210 Nicotine dependence, cigarettes, uncomplicated; F25.9 Schizoaffective disorder, unspecified; F31.9 Bipolar disorder, unspecified; G40.909 Epilepsy, unspecified, not intractable, without status epilepticus; I10 Essential (primary) hypertension; E11.9 Type 2 diabetes mellitus without complications; Z79.84 Long term (current) use of oral hypoglycemic drugs
CPT/HCPCS: 36415; 80053; 80164; 80305; 80307; 82962; 83036; 85027; 86593; 86780; 93005; 93010

== ENCOUNTER 2024-08-14 09:23 | Inpatient (IN) | payer OTHER ==
[2024-08-14 09:48] VITALS: BMI 20.9
[2024-08-14] MEDS ORDERED: METHOCARBAMOL 500 MG TABLET PO PRN (11:05)
[2024-08-14] MEDS ORDERED: BENZONATATE 200 MG CAPSULE PO PRN (11:05)
[2024-08-14] MEDS ORDERED: BISMUTH SUBSALICYLATE 262 MG/15 ML BTL PO PRN (11:05)
[2024-08-14] MEDS ORDERED: MAG HYDROX/AL HYDROX/SIMETH 30 ML UNIT-DOSE CUP PO PRN (11:05)
[2024-08-14] MEDS ORDERED: ONDANSETRON *ODT* 4 MG TABLET SL PRN (11:05)
[2024-08-14] MEDS ORDERED: MAGNESIUM HYDROX 2400MG/30ML ORAL SUSPENSION 30 ML CUP PO PRN (11:05)
[2024-08-14] MEDS ORDERED: POLYETHYLENE GLYCOL (HEALTHYLAX) 3350 17 GM PACKET PO PRN (11:05)
[2024-08-14] MEDS ORDERED: ACETAMINOPHEN 325 MG TABLET (FP) PO PRN (11:05)
[2024-08-14] MEDS ORDERED: BENZOCAINE/MENTHOL (CHLORASEPTIC ) LOZENGE MM PRN (11:05)
[2024-08-14] MEDS ORDERED: NALOXONE (NARCAN) HCL 4 MG/0.1 ML SPRAY NS PRN (11:05)
[2024-08-14] MEDS ORDERED: hydrOXYzine PAMOATE 25 MG CAPSULE (FP) PO PRN (11:05)
[2024-08-14] MEDS ORDERED: DICYCLOMINE HCL 10 MG CAPSULE PO PRN (11:05)
[2024-08-14] MEDS ORDERED: guaiFENesin 600 MG TABLET.ER (FP) PO PRN (11:05)
[2024-08-14] MEDS ORDERED: LOPERAMIDE HCL 2 MG CAPSULE PO PRN (11:05)
[2024-08-14] MEDS ORDERED: IBUPROFEN 400 MG TABLET (FP) PO PRN (11:05)
[2024-08-14] MEDS ORDERED: LORazepam 1 MG TABLET PO PRN (13:35)
[2024-08-14] MEDS: INSULIN ASPART SLIDING SCALE (NOVOLOG) 1 VIAL SQ SCH (17:38)
[2024-08-14] MEDS: IBUPROFEN 600 MG TABLET (FP) PO PRN (17:39)
[2024-08-14] MEDS: LORazepam 2 MG TABLET PO SCH (17:39)
[2024-08-14] MEDS: MELATONIN 5 MG TABLETS PO SCH (22:35)
[2024-08-14] MEDS: THIAMINE 100 MG TABLET PO SCH (22:35)
[2024-08-15] MEDS: PRENATAL VITAMINS W/ FOLIC ACID TABLET (FP) PO SCH (10:52)
[2024-08-15] MEDS: metFORMIN HCL 500 MG TABLET (FP) PO SCH (10:53)
[2024-08-15] MEDS: DIVALPROEX SODIUM 500 MG TABLET E.C. PO SCH (10:53)
[2024-08-15 11:59] LABS: HEMATOCRIT 41.4 % (40.1-51.0); HEMOGLOBIN 12.2 g/dL (13.7-17.5); MCHC 29.5 g/dl (32.3-36.5); MEAN CELL VOLUME 76.7 fl (79.0-92.2); PLATELET COUNT 326 x10^3/uL (163-337); RDW 21.4 % (12.1-15.9)
[2024-08-15 12:59] LABS: POTASSIUM 3.8 mmol/L (3.5-5.1)
[2024-08-15 13:09] LABS: BLOOD UREA NITROGEN 17.1 mg/dL (7-18); CALCIUM 9.2 mg/dL (8.5-10.1)
[2024-08-15 13:12] LABS: ALBUMIN 3.4 g/dl (3.4-5.0); CREATININE 0.8 mg/dL (0.55-1.3)
[2024-08-15 13:14] LABS: BILIRUBIN,TOTAL 0.3 mg/dL (0.2-1); TOT PROT 7.1 g/dl (6.4-8.2)
[2024-08-15 14:13] VITALS: RESP 16
[2024-08-15 17:39] VITALS: BP 131/72; PULSE 77; TEMP 97.7
[2024-08-16] MEDS ORDERED: LORazepam 1 MG TABLET PO SCH (05:00)
[2024-08-17] MEDS ORDERED: LORazepam 0.5 MG TABLET PO PRN
[2024-08-17] MEDS ORDERED: LORazepam 0.5 MG TABLET PO SCH (05:00)
[2024-08-18] MEDS ORDERED: LORazepam 0.5 MG TABLET PO ONE (05:00)
== END 2024-08-15 17:18 | disposition left against medical advice (07) | DRG 770 ==
LOC: YASAS 09:23 → Y6N 11:41
PROVIDERS: ADMIT Allergy & Immunology; ATTEND Allergy & Immunology
PROC: HZ2ZZZZ Detoxification Services for Substance Abuse Treatment (ICD-10-PCS; principal; 2024-08-14)
DX: F10.230 Alcohol dependence with withdrawal, uncomplicated (principal); F14.20 Cocaine dependence, uncomplicated; F13.20 Sedative, hypnotic or anxiolytic dependence, uncomplicated; F17.210 Nicotine dependence, cigarettes, uncomplicated; F19.282 Other psychoactive substance dependence with psychoactive substance-induced sleep disorder; F31.9 Bipolar disorder, unspecified; E11.9 Type 2 diabetes mellitus without complications; Z79.84 Long term (current) use of oral hypoglycemic drugs; Q73.8 Other reduction defects of unspecified limb(s); Z62.810 Personal history of physical and sexual abuse in childhood; Z86.19 Personal history of other infectious and parasitic diseases; Z91.410 Personal history of adult physical and sexual abuse; Z86.11 Personal history of tuberculosis
CPT/HCPCS: 36415; 80053; 80305; 80307; 82962; 85027; 86593; 86780; 93005; 93010